=== PATIENT | female | born 1955 | race Caucasian/White ===

== ENCOUNTER → 2018-08-21 13:39 | Outpatient (CLI) | payer OTHER, SELFPAY ==
--- NOTE | 2018-08-21 13:44 | RAD_ITS ---
STUDY: X-RAY - RIGHT SHOULDER REASON FOR EXAM: Female, 63 years old. Injury right shoulder TECHNIQUE: 3 view(s) of the shoulder. COMPARISON: None. FINDINGS: Normal glenohumeral articulation. Normal acromioclavicular joint. Normal acromion. Normal humeral head and visualized proximal humerus. The soft tissue structures are unremarkable. Normal visualized pulmonary apex. RAD/Shoulder min 2 Views IMPRESSION: Normal x-ray examination of the shoulder. Electronically Signed: Matt Maddox MD at 21:38 EST , Service support ,
== END ==
PROVIDERS: Referring Provider Physician Assistant; Visit Provider Physician Assistant
DX: M25.511 Pain in right shoulder (principal)
CPT/HCPCS: 73030

== ENCOUNTER → 2018-09-12 15:51 | Outpatient (CLI) | payer OTHER, SELFPAY ==
--- NOTE | 2018-09-12 15:54 | MRI_ITS ---
STUDY: MRI RIGHT SHOULDER REASON FOR EXAM: Female, 63 years old. Pain. Limited range of motion. TECHNIQUE: Standardized fat and water weighted pulse sequences were obtained in all 3 orthogonal planes. COMPARISON: X-ray August 21, 2018. FINDINGS: There is tendinosis of the supraspinatus with high-grade bursal surface and intrasubstance distal tendon tear, series 5 image 10/04 and series 7 image 03/06. There is infraspinatus tendinosis with tendon thickening, but without a demonstrated tendon tear. There is subscapularis tendinosis with tendon thickening, but without a demonstrated tendon tear. Normal teres minor tendon. Normal supraspinatus muscle. Normal infraspinatus muscle. Normal subscapularis muscle. Normal teres minor muscle. Normal glenohumeral articulation. Normal humeral head and visualized proximal humerus. Normal biceps labral complex. Normal intracapsular long biceps tendon. Normal labrum. Normal capsulo- ligamentous complex. Normal rotator interval. There is moderate osteoarthritis of the acromioclavicular articulations. There is a Type II morphology (curved) acromion, with a neutral orientation. There is mild fluid distention of the subacromial bursa, consistent with mild subacromial-subdeltoid bursitis. Normal visualized coracohumeral and coracoacromial ligaments. Normal quadrilateral space. Normal axillary space. Normal deltoid muscle. Normal trapezius muscle. MRI/Upper Ext Joint Only(Routine) IMPRESSION: High-grade rotator cuff tear of the supraspinatus tendon. Electronically Signed: Andrez Tristan MD at 8:15 EST , Service support ,
--- OUTSIDE RECORDS SUMMARY | 2018-11-08 02:15 | XMS RPT_ITS ---
:1955 Author Organization OHIP Care Team Providers Name Role Phone LASHONDA SHEYBrynn Admitting Unavailable SCOTT YOUSSEF Attending Unavailable CAT YOUSSEFEESBrynn Referring Unavailable BREEZY LAWRENCE Consulting Unavailable CORI LOOMIS ([facility]) Referring Unavailable ANDREZ MEI Referring Unavailable Papo Reed Attending Unavailable Papo Reed Attending Unavailable Papo Reed Referring Unavailable VALENTINA ELIAS Primary Care Unavailable Papo Reed Attending Unavailable Papo Reed Referring Unavailable VALENTINA ELIAS Primary Care Unavailable Papo Reed Attending Unavailable DOCTOR, OUT OF TOWN Referring Unavailable NARGIS DONALD Attending Unavailable NARGIS DONALD Referring Unavailable CORI LOOMIS ([facility]) Attending Unavailable ANUJ DYER Attending Unavailable ANUJ DYER Referring Unavailable CORI LOOMIS ([facility]) Attending Unavailable CORI LOOMIS ([facility]) Referring Unavailable MALU DONALDE Josefina Attending Unavailable SHABANA NARGIS Josefina Referring Unavailable ANDREZ MEI Attending Unavailable TRISTA CHEATHAM Referring Unavailable JUANA HUNT ([place]) Referring Unavailable PROBLEMS PROBLEMS DATE TYPE CONDITION / CODE ATTENDING STATUS SOURCE 09/28/2018 Active Presence of coronary NA Active [facility] angioplasty implant [facility] Main and graft / [place] Z95.5(ICD-10) Repository 09/28/2018 Active Non-Hodgkin lymphoma, NA Active [place] unspecified, Clinic Other unspecified site / [place] C85.90(ICD-10) Repository 09/18/2018 Active Incomplete rotator NA Active [place] cuff tear or rupture Clinic Other of right shoulder, not [place] specified as traumatic Repository / M75.111(ICD-10) 02/07/2018 Active Essential (primary) NA Active [place] hypertension / Clinic Other I10(ICD-10) [place] Repository 02/07/2018 Active Gastro-esophageal NA Active [place] reflux disease without Clinic Other esophagitis / [place] K21.9(ICD-10) Repository 05/25/2016 Active Other specified NA Active [facility] polyneuropathies / Clinic Other G62.89(ICD-10) [place] Repository 09/28/2018 Active Encounter for other NA Active [place] preprocedural Clinic Other examination / [place] Z01.818(ICD-10) Repository 09/14/2018 Unknown M67.911 - Unspecified [place] glass Active [facility] disorder of [facility] and tendon, right Hospital shoulder / Repository M67.911(ICD-10) 09/14/2018 Unknown S46.209A - Unspecified Way[facility] Papo Active [facility] injury of muscle, [facility] fascia and tendon of Hospital other parts of biceps, Repository unspecified arm, initial encounter / S46.209A(ICD-10) 08/21/2018 Unknown M25.511 - Pain in [place] Active [facility] right shoulder / [facility] M25.511(ICD-10) Hospital Repository 02/28/2018 Active Encounter for NA Active [facility] screening mammogram Clinic Other for malignant neoplasm [place] of breast / Repository Z12.31(ICD-10) 01/27/2018 Active Chest pain, SINGAM, Active [place] unspecified / [facility] Clinic Other R07.9(ICD-10) [place] Repository PROCEDURES PROCEDURES No Procedure Records FoundRESULTS RESULTS NURSING PROG Observed: 10/01/2018 Status: COMPLETED Source: [place] 1:51 PM CLINIC OTHER CAMPUS REPOSITORY HNO ID: [id number] Author: Gege (Rn) ANANYA Smith Service: Nursing Author Type: Registered Nurse Type: Nursing Progress Note Filed: 10/01/2018 1:53 PM Note Text: PACC Nurse Progress Note History AND Physical: PACC Visit Date: 09/28/18 Original HANDP Date: 09/28/18 ED visit Date: N/A Outside HANDP Scanned Date: N/A Labs Within Last 6 Months: CBC: Date 09/28/18 cbc/diff- hgb 15.9/hct 48.5,similar to previous Imaging Within Last 12 Months: N/A Cardiac Testing: EKG in last 12 Months: Yes: Date: 01/27/18, Comment: NSR Last Menstrual Period: LMP Date: N/A Postmenopausal >1yr: Yes, S/P Hysterectomy: Yes BMI Percentile (PEDS): N/A Risk Assessment: N/A Anesthesia Review: N/A Narrative: Non Hodgkins Lymphoma- in remission CAD stent 2004- on ASA but pt currently stopped it on her own (I advised to to restart 81mg ASA) - denies CP Peripheral neuropathy- on rx's H/o splenectomy and chronic thrombocytosis Pre-op Considerations: N/A Chart Check: COMPLETED Gege Smith RN October 01, 2018 1:51 PM CBC AND DIFFERENTIAL Collected: 09/28/2018 Status: F Source: [place] 1:48 PM CLINIC MAIN CAMPUS REPOSITORY TYPE CODE TESTS RESULT OUT OF REFERENCE UNITS RANGE LAB WBC 3.70-11.00 k/uL WBC 9.72 LAB RBC 3.90-5.20 m/uL RBC High 5.35 LAB HGB 11.5-15.5 g/dL High Hemoglobin 15.9 LAB HCT 36.0-46.0 % High Hematocrit 48.5 LAB MCV 80.0-100.0 fL MCV 90.7 LAB MCH 26.0-34.0 pG MCH 29.7 LAB MCHC 30.5-36.0 g/dL MCHC 32.8 LAB RDWCV 11.5-15.0 % RDW-CV High 15.9 LAB PLTCT 150-400 k/uL Platelet Count 213 LAB MPV 9.0-12.7 fL MPV 11.8 LAB NEUT % Neut% 40 LAB LYMPH % Lymph% 43 LAB MONO % [place]% 12 LAB EOSIN % Eosin% 3 LAB BASO % Baso% 2 LAB ABNEUT 1.70-7.00 k/uL Abs Neut 3.89 LAB ABLYM 0.90-4.00 K/uL Abs Lym High 4.18 LAB ABMONO <0.87 k/uL Abs [place] High 1.17 LAB ABEOS <0.46 K/uL Abs Eosin 0.29 LAB ABBASO <0.11 k/uL Abs Baso High 0.19 LAB RBCMOR Red Cell Morph SEE COMMENT Result Comment: Normal LAB PLTEST Platelet Platelet Estimate estimate adequate Performed By: #### CBCDIF #### [facility] [address] [phone] HISTORY PHYSICAL Observed: 09/28/2018 Status: COMPLETED Source: [place] 1:02 PM CLINIC OTHER CAMPUS REPOSITORY HNO ID: [id number] Author: Juana Cheema) Armando Service: (none) Author Type: Physician Fbi Investigator Type: HANDP Filed: 09/28/2018 1:53 PM Note Text: HISTORY AND PHYSICAL EXAMINATION SERVICE DATE: 09/28/2018 SERVICE TIME: 1:02 PM PRIMARY CARE PHYSICIAN: Nargis Donald MD REASON FOR VISIT: Cristiane Santiago is a 63 year old female who is scheduled for right shoulder clavicle osteotomy with arthroscopy at the request of Dr. Andrez Mei for consultation. My final recommendation will be communicated back to the requesting physician by way of shared medical record or letter. The patient has the following: ACTIVE PROBLEM LIST Lymphoma (Hcc) Marginal Zone Lymphoma (Hcc) Cellulitis of Face Anxiety Peripheral Neuropathy Chest Pain Gastroesophageal Reflux Disease Essential Hypertension Impingement Syndrome of Right Shoulder Incomplete Tear of Right Rotator Cuff Arthritis of Right Shoulder Region H/O Placement of Stent in Anterior Descending Branch of Left Coronary Artery Subjective CHIEF COMPLAINT: right shoulder pain HPI: right shoulder pain since and injury in March when she fell. Since then the pain is worse with trying to lift something and raise the arm. The pain is throbbing at rest as well. Prior treatment has been aleve. No PT or injections. PAST MEDICAL HISTORY Diagnosis Date - Anxiety - CAD (coronary artery disease) - Cellulitis of face 08/24/2015 - HTN (hypertension) - Hyperlipidemia pt refuses meds due to myalgias - Marginal zone lymphoma (HCC) 05/10/[address] 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 if pt has ovaries FAMILY HISTORY Problem Relation Age of Onset - Cancer Father ? type - Diabetes Mother - Hypertension Mother - Breast Cancer Maternal Aunt and ovarian cancer - other (leukemia) Maternal Aunt 2 cousins SOCIAL HISTORY: Social History Marital status: Spouse name: Years of education: Number of children: Social History Main Topics Smoking status: Former Smoker Packs/day: 1.50 Years: 40.00 Types: Cigarettes Quit date: 09/06/2018 Smokeless tobacco: Never Used Alcohol use: No Drug use: No Prior to Admission medications as of 09/28/18 1319 Medication Sig Last Dose Taking ALPRAZolam (XANAX) 1 mg tablet Take 1 tablet by mouth three times daily as needed for up to 90 days. Yes baclofen (LIORESAL) 10 mg tablet TAKE 1 TABLET BY MOUTH THREE TIMES DAILY Yes gabapentin (NEURONTIN) 800 mg tablet Take 1 tablet by mouth three times daily. Yes metoprolol succinate ER (TOPROL XL) 50 mg 24 hr tablet Take 5 tablets by mouth once daily. Patient taking differently: Take 50 mg by mouth three times daily. tid to qid throughout the day Yes Omeprazole 40 mg capsule Take 1 capsule by mouth as needed. Yes ramipril (ALTACE) 5 mg capsule Take 1 capsule by mouth four times daily. Yes No medication comments found. ALLERGIES Allergen Reactions - Penicillins Rash, Itching - Codeine Itching - Hydrochlorothiazide Intolerance low sodium - Morphine Unknown - Rituximab Unknown REVIEW OF SYSTEMS: PAIN ASSESSMENT: Pain Pain Score: 6/10 Pain Location: Shoulder-Right Description: Aching Frequency: Continuous Intervention: Medication General: No weight loss, malaise or fevers. Neuro: Postive for Peripheral neuropathy hands and feet since chemo, 2 syncopal episodes with dizziness- didnt go to ER, Negative for TIA's Headaches Seizures Stroke-residual deficit Respiratory: No history of current cough or dyspnea, or pneumonia in the past 6 weeks. No history of respiratory/pulmonary symptoms or problems., quit smoking 08/2018 Cardiovascular: Positive for: CAD; Stents: 2003 1 stent in LAD, Hypertension, Negative for Recent DE, Arrhythmia, Chest Pain, Valvular Heart Disease, DVT/PE Pt has stopped her ASA EKG in 01/2018 [facility] GI: Positive for GERD, h/o splenectomy , Negative for PUD, Hepatitis, Pancreatitis, IBS : No history of dysuria, frequency or incontinence,, stones or chronic kidney disease CHICKEN SEXER: Negative for abnormal vaginal bleeding, abnormal vaginal discharge. : N/A, No LMP recorded. Patient has had a hysterectomy. Endocrine: No history of diabetes. Has not taken steroids within the past 30 days. No history of endocrinological symptoms or problems. Hematology: chronic leukocytosis since splenectomy, No anemia Oncology: Non Hodgkins lymphoma- in remission, sees Dr Palmer Psych: Anxiety Musculoskeletal: See HPI Skin: Negative for lesions, rash and itching. Objective PHYSICAL EXAM: VITALS: BP 128/64 Pulse 60 Temp (Src) 98.6 (Tympanic) Resp 16 Ht 5' 3 (1.60m) Wt 142 lb (64.4kg) SpO2 96% BMI 25.16 kg/(m2). General: Alert and oriented, No acute distress, Healthy appearance Skin: Normal color, no rash, no lesions. HEENT: EOM, pupils equal, round and reactive. Cardiovascular: Normal S1 AND S2, no rubs, murmurs or gallops. No JVD. Pulse regular. Lungs: Normal breath sounds, no wheezes or crackles. Abdomen: Soft, non-tender, no rigidity. Extremities: No deformity, no edema or tenderness, no joint swelling or clubbing. Neurological: Normal cognition and motor skills. Pulses: Carotid and radial pulses normal +2. Diagnostic tests reviewed for today's visit: Lab Value Units Date High Low HB No results within date range. HCT No results within date range. WBC No results within date range. PLT No results within date range. NA 141 MEQ/L 04/06/2018 145 136 K 4.9 MEQ/L 04/06/2018 5.1 3.5 GLUC 82 MG/DL 04/06/2018 106 74 BUN 6 mg/dL 04/06/2018 25 7 CREAT 0.77 mg/dL 04/06/2018 1.20 0.70 PTSEC No results within date range. INR No results within date range. APTT No results within date range. ALT No results within date range. AST No results within date range. TBILI No results within date range. TSH No results within date range. Lab Value Units Date High Low HCGQT No results within date range. UHCG No results within date range. HCG, BODY* No results within date range. Lab Value Units Date High Low ABORHD No results within date range. ABSCREEN No results within date range. Hemoglobin A1C (%) Date Value 01/27/2018 6.0 Most recent labs Assessment ASSESSMENT HTN - Well controlled Non Hodgkins Lymphoma- in remission CAD stent 2004- on ASA but pt currently stopped it on her own (I advised to to restart 81mg ASA) - denies CP Peripheral neuropathy- on rx's GERD- on rx H/o splenectomy and chronic thrombocytosis METS: Do heavy work around the house, such as scrubbing floors, lifting or moving heavy furniture (8.00 METs) ASA Class: 3 ANESTHESIA FINDINGS: Intubation History: No history of difficult intubation Significant Anesthesia Considerations: None Airway Exam: General: Normal appearance Mallampati Score is CLASS III ULBT: Class I - Lower incisors can bite the upper lip above the obi line Neck: Normal appearance and function, Distance from hyoid to mentum during neck extension is at least 3 finger breaths Mouth: Normal tongue size Dentition: Intact and Bridge Airway History: No abnormal airway history STOP BANG Score: Criteria: Hypertension Age over 50 (63 year old) Score = 2 PLAN This patient is optimally prepared for surgery pending LABS. CONSULTS: Patient does not require consults for optimization at this time. The Following Tests/Procedures Have Been Initiated: Orders Placed This Encounter CBC + DIFF Planned Anesthetic: Per anesthesia choice Instructions Given to Patient: Patient given verbal and written preop instructions and voices comprehension and compliance. SIGNATURE: Juana Hunt PA-C PATIENT NAME: Cristiane Santiago DATE: September 28, 2018 TIME: 1:02 PM PAGER/CONTACT #: [email or web address] VISIT Observed: 09/17/2018 Status: F Source: [facility] REPORT 4:21 PM [facility] REPOSITORY [facility] Orthopaedics AND Sports Medicine [address] [place] [id number] OFFICE VISIT Date of Service: 09/14/18 MR#: [id number] Acct: [id number] Name: CRISTIANE SANTIAGO Rep #: [id number] : 1955 Provider: ASIF Reed Age/Sex: 63/F [place] [facility] [place] Status: Signed Intake Intake Visit Reasons: RIGHT SHOULDER Is patient in pain?: Yes Allergies codeine Allergy (Verified 08/21/18 13:31) unknown morphine Allergy (Verified 08/21/18 13:31) Unknown Penicillins Allergy (Verified 08/21/18 13:31) unknown PFSH Medical History Hypertension (Chronic) Social History Smoking Status: Current every day smoker tobacco type: cigarettes HPI RIGHT SHOULDER: Details: CRISTIANE SANTIAGO is a 63 year old F here today for MRI f/u of the right shoulder. She complains of pain during any motions, she finds some comfort when seated but pain increases again at night when trying to sleep. She also states she has tenderness to touch the scapula and cervical spine. There is also tricep radiating pain at the end of the day as well. Denies numbness, tingling or other associated symptoms. ROS Musc Reports as per HPI, Reports limited joint movement, Reports stiffness, Reports joint pain, Reports muscle weakness Ortho Exam Right Shoulder Skin/Wound: No ecchymosis Contralateral Normal: Yes Testing: Positive Hawkin's, Neer's, Speed's, TTP Biceps and TTP AC Joint; negative AROM-Forward Elevation 0-180 (90), AROM-External Rotation at side 0-60 (20), PROM-Forward Elevation 0-180 or PROM-External Rotation at side 0-60 Internal Rotation: Hip SHOULDER: She continue to have evident decrease strength and motion of the right shoulder mostly abduction and forward flexion as well as internal rotation. There is evident weakness with rotator cuff muscles in all directions still. AC joint which is also tender on palpation with some bony formation. There is still biceps tendon and the coracoid process tenderness indicating biceps involvement. Assessment AND Plan Problems 1. Tear of right supraspinatus tendon, subsequent encounter S46.396F Plan At this time we discussed the patient's MRI findings which did show a high-grade full-thickness tear of the supraspinatus tendon. This point does correspond with patient's signs and symptoms which include decreased range of motion and strength of the right shoulder. We discussed the anatomy and physiology of the shoulder and rotator cuff as well as the pathophysiology of her injury. At this time they really feel that she would like to proceed with surgical fixation of the rotator cuff. They however want to make sure that this is done before the end of the year. I explained that at this time our surgeon will be out on maternity leave and at this point do not have any open surgical slots prior to when she is going to stop surgery. It is possible that she will open of this loss but cannot guarantee this and explained that to patient and her . I will check with our surgeon about this surgery at the same time advised him that I would check with their insurance company and see about getting in with 1 of the surgeons across [facility] who can also review her MRI to see if anybody would be able to do her surgery prior to be in the year which is what they want. They are to call the office on Monday after which time I will talk with surgeon but again I did recommend they start to try have something else in the works as a really want to somebody in the year. Coding Level of Care Code Off vis,est,level 2 Diagnoses Tear of right supraspinatus tendon, subsequent encounter S46.811D Encounter type: subsequent encounter 09/17/18 1621 <Electronically signed by Papo GOLD> Date Papo GOLD Cosigner Signature: Date (if applicable) CC: UPPER EXT JOINT Observed: 09/12/2018 Status: F Source: [place] ONLY(ROUTINE) 3:54 PM [facility] REPOSITORY [facility] Imaging Services [address] [place] [address] Upper Ext Joint Only(Routine) MR#: [id number] Acct: [id number] Name: CRISTIANE SANTIAGO David Rep #: [id number] : 1955 F 63 From: Andrez Tristan MD PCP: OUT OF TOWN DOCTOR Status: REG CLI Study: Upper Ext Joint Only(Routine) Date of Exam: 09/12/18 Exam# [id number] Ordering Dr: Papo Reed STUDY: MRI RIGHT SHOULDER REASON FOR EXAM: Female, 63 years old. Pain. Limited range of motion. TECHNIQUE: Standardized fat and water weighted pulse sequences were obtained in all 3 orthogonal planes. COMPARISON: X-ray August 21, 2018. FINDINGS: There is tendinosis of the supraspinatus with high-grade bursal surface and intrasubstance distal tendon tear, series 5 image 10/04 and series 7 image 03/06. There is infraspinatus tendinosis with tendon thickening, but without a demonstrated tendon tear. There is subscapularis tendinosis with tendon thickening, but without a demonstrated tendon tear. Normal teres minor tendon. Normal supraspinatus muscle. Normal infraspinatus muscle. Normal subscapularis muscle. Normal teres minor muscle. Normal glenohumeral articulation. Normal humeral head and visualized proximal humerus. Normal biceps labral complex. Normal intracapsular long biceps tendon. Normal labrum. Normal capsulo- ligamentous complex. Normal rotator interval. There is moderate osteoarthritis of the acromioclavicular articulations. There is a Type II morphology (curved) acromion, with a neutral orientation. There is mild fluid distention of the subacromial bursa, consistent with mild subacromial-subdeltoid bursitis. Normal visualized coracohumeral and coracoacromial ligaments. Normal quadrilateral space. Normal axillary space. Normal deltoid muscle. Normal trapezius muscle. MRI/Upper Ext Joint Only(Routine) IMPRESSION: High-grade rotator cuff tear of the supraspinatus tendon. Electronically Signed: Anderz Tristan MD at 8:15 EST , Service support , CC: ASIF Reed; OUT OF TOWN DOCTOR Content Coordinator: Signed MR-UPPER EXT JOINT Observed: 09/12/2018 Status: F Source: [place] ONLY(ROUTINE) IMPORT 12:00 AM [facility] [place] REPOSITORY Images were obtained outside of [facility] [id number] MR OUTSIDE CD DICOM Observed: 09/12/2018 Status: F Source: [place] IMPORT -NBNR 12:00 AM [facility] [place] REPOSITORY Images were obtained outside of [facility] [id number] ORTHOPEDIC VISIT Observed: 08/21/2018 Status: F Source: [place] REPORT 4:18 PM [facility] REPOSITORY [facility] Orthopaedics AND Sports Medicine [address] [facility] [address] [place] [address] OFFICE VISIT Date of Service: 08/21/18 MR#: [id number] Acct: [id number] Name: CRISTIANE SANTIAGO Rep #: [id number] : 1955 Provider: ASIF Reed Age/Sex: 63/F Location: [facility] [place] Status: Signed Intake Vital Signs08/21/18 Height 5 ft 3 in 08/21/18 Weight: 147 lb 08/21/18 Body Mass Index (BMI) 26.0 Intake Visit Reasons: RIGHT SHOULDER Is patient in pain?: Yes Pain scale (1-10): 7 Allergies codeine Allergy (Verified 08/21/18 13:31) unknown morphine Allergy (Verified 08/21/18 13:31) Unknown Penicillins Allergy (Verified 08/21/18 13:31) unknown PFSH Medical History Hypertension (Chronic) Social History Smoking Status: Current every day smoker tobacco type: cigarettes HPI RIGHT SHOULDER: Details: CRISTIANE SANTIAGO is a 63 year old F here today for right shoulder pain. Patient notes that she has had right shoulder pain since April. She states that she stepped on a piece of wood, and the board flipped and she landed on her right shoulder. Patient complains of pain over her anterior shoulder. She states that she has popping. Patient states that she had shingles a year ago, and her neck is still numb from her shingles. Patient has increased pain with all activities. She struggles to push herself up in the morning which is painful. Patient denies any injections or physical therapy. She denies any xrays or MRI. Denies numbness, tingling or other associated symptoms. ROS Const Reports system reviewed and no additional complaints, except as docu Eyes Reports system reviewed and no additional complaints, except as docu ENT Reports system reviewed and no additional complaints, except as docu Card Reports system reviewed and no additional complaints, except as docu Resp Reports system reviewed and no additional complaints, except as docu GI Reports system reviewed and no additional complaints, except as docu Reports system reviewed and no additional complaints, except as docu Musc Reports joint pain Skin/Breast Reports system reviewed and no additional complaints, except as docu Neuro Yes system reviewed and no additional complaints, except as docu Psych Reports system reviewed and no additional complaints, except as docu Endo Reports system reviewed and no additional complaints, except as docu Ortho Exam Right Shoulder Skin/Wound: No ecchymosis Contralateral Normal: Yes Testing: Positive Hawkin's, Neer's, Speed's, TTP Biceps and TTP AC Joint; negative AROM-Forward Elevation 0-180 (90), AROM-External Rotation at side 0-60 (20), PROM-Forward Elevation 0-180 or PROM-External Rotation at side 0-60 Internal Rotation: Hip SHOULDER: This time patient has evident decrease strength and motion of the right shoulder. Most notably decreased with abduction and forward flexion and internal rotation. She has evident weakness with rotator cuff muscles in all directions as well. There is a small bony protrusion of the AC joint which is also tender on palpation. She does have some anterior tenderness over the biceps tendon and the coracoid process. There does appear to be some biceps involvement. Assessment AND Plan Problems 1. Injury of right shoulder, initial encounter S49.91XA 2. Disorder of right rotator cuff M67.911 3. Injury of tendon of biceps S46.A Plan Obtained Xrays of patient's right shoulder. Personally reviewed Xrays. There is no obvious fracture, dislocation, or lucency noted at the same time there is evident AC joint arthritis as well as having a type II acromion. See chart for further details. Today in office patient has evident rotator cuff involvement showing weakness as well as decreased range of motion. She has evident impingement signs. She also has evident biceps involvement. Patient had an initial injury back in April and has continued with his decreased range of motion and strength. This exam does point to a rotator cuff tear. We discussed options at this time which include doing nothing, some home exercises, anti-inflammatories, injections, or further diagnostic imaging. After discussion patient and her state that she would want to have this fixed if there is something to be fixed and would like to proceed with an MRI of the right shoulder before she does any type of injections or therapy. I explained the risks and benefits of all these treatment options with them including surgical intervention which they understand verbally. Again they would like to proceed with MRI at this time. They will follow-up in the office to go over her MRI and discuss the next step in her treatment. She continues to ice and take anti-inflammatories as needed for pain. Notify sooner of any injuries, concerns, or new problems. Orders Orders: Plan Detail Follow Up 3 Weeks Coding Level of Care Code Off vis,new,level 3 Diagnoses Injury of right shoulder, initial encounter S49.91XA Encounter type: initial encounter Disorder of right rotator cuff M67.911 Injury of tendon of biceps S46.209A 08/21/18 1618 <Electronically signed by Papo GOLD> Date Papo GOLD Cosigner Signature: Date (if applicable) CC: SHOULDER MIN 2 VIEWS Observed: 08/21/2018 Status: F Source: [place] 1:44 PM [facility] REPOSITORY [facility] Imaging Services [address] [place] [address] Shoulder min 2 Views MR#: [id number] Acct: [id number] Name: CRISTIANE SANTIAGO Rep #: [id number] : 1955 F 63 From: Matt Maddox MD PCP: OUT OF TOWN DOCTOR Status: REG CLI Study: Shoulder min 2 Views Date of Exam: 08/21/18 Exam# [id number] Ordering Dr: Papo Reed STUDY: X-RAY - RIGHT SHOULDER REASON FOR EXAM: Female, 63 years old. Injury right shoulder TECHNIQUE: 3 view(s) of the shoulder. COMPARISON: None. FINDINGS: Normal glenohumeral articulation. Normal acromioclavicular joint. Normal acromion. Normal humeral head and visualized proximal humerus. The soft tissue structures are unremarkable. Normal visualized pulmonary apex. RAD/Shoulder min 2 Views IMPRESSION: Normal x-ray examination of the shoulder. Electronically Signed: Matt Maddox MD at 21:38 EST , Service support , CC: ASIF Reed; OUT OF [facility] DOCTOR Content Coordinator: Signed CR-SHOULDER MIN 2 VIEWS Observed: 08/21/2018 Status: F Source: [place] 12:00 AM [facility] REPOSITORY Images were obtained outside of [facility] [id number] CR-SHOULDER MIN 2 VIEWS Observed: 08/21/2018 Status: F Source: [place] 12:00 AM [facility] REPOSITORY Images were obtained outside of [facility] [id number] PROGRESS Observed: 04/23/2018 Status: COMPLETED Source: [place] 2:00 PM [facility] REPOSITORY O ID: [id number] Author: Nargis Donald Service: (none) Author Type: Physician Type: Progress Notes Filed: 04/23/2018 5:46 PM Note Text: Cristiane Santiago is a 63 year old female who presents today with concern or complaint of Patient presents with: Follow Up routine f/u last visit w/ Cori ~ 6 weeks ago and 10 weeks ago review elevated BPs, had low sodium on hctz so it was d/c'd didn't have recommended stress test after [facility] ED visit denies cp review of last A/P per MATERIAL DAMAGE ADJUSTER suboptimal control Patient unwilling at this time to try a different antihypertensive such as amlodipine Patient requesting that we attempt to increase one of HER- 2 current medications and hopes that she can tolerate this Patient currently taking Altace 5 mg and metoprolol 25 mg (1/2 tab) 4 times daily Patient to increase metoprolol to 50 mg 4 times a day - Encouraged dietary sodium restriction/DASH diet - Recommend home blood pressure monitoring, to bring results in on next visit - Recheck in 6 weeks as scheduled with PCP, sooner should new symptoms or problems arise. - Patient strongly encouraged to complete stress test as previously ordered says that she gets really nervous when she is coming in has increased toprol to 250 mg a day and readings have been better at home it was incerased by Cori to 200 mg a day but pharmacist said she could take a 5th one if needed up to 400 mg / day DTAP,TDAP,TD(1 - Tdap) due on 1974 ZOSTER VACCINE (SHINGRIX)(1 of 2) due on 2005 increased her gabapentin / neurontin to 4 times a day for neuropathy on her own - willing to try 800 mg tid in need of referral for pain management, history of peripheral neuropathy in hands and feet after chemotherapy for lymphoma in 2012, also c/o ongoing nerve pain in right upper back after shingles which was in 08/2017 - can hardly stand putting clothes on neurontin hasn't helped c/o sinus infection sx request for doxy get's it 1-2 times a year apain at left upper molars like she usually does left side of face was given nasal spray and an antbx in the past which worked well has had it several times over the years PMH reviewed MEDS reviewed ALLERGIES: Penicillins; Codeine; Hydrochlorothiazide; Morphine; Rituximab PHYSICAL EXAMINATION: BP 198/88 Pulse 64 Temp 36.8 ?C (98.2 ?F) (Oral) Resp 18 Wt 67.3 kg (148 lb 4.8 oz) SpO2 96% BMI 26.27 kg/m? General appearance: alert, cooperative, in no acute distress Head: Normaocephalic Eyes: conjunctiva/corneas normal, EOMI Ears: Inspection of External ears normal R TM - clear with good landmarks, L TM - clear with good landmarks Nose: clear, ttp over max sinus Oropharynx: moist Neck: supple, no adenopathy and ttp right upper back Heart: regular rate and rhythm, without murmur Lungs: clear to auscultation, without rales or wheeze, good air exchange Lower Extremities: no edema, normal DP/PT pulses ASSESSMENT/PLAN: 1. Uncontrolled hypertension - ICD9: 401.9, ICD10: I10 (primary diagnosis) - aggrav by stress / white coat hypertension, improving at home w/ increase in metoprolol recommmend continue w/ metoprolol 250 mg once daily (pt prefers to spread out the dose on her own but advised ok to take all at once or split in 2 doses 3 in am and 2 later rather than 1 at a time) - Encouraged dietary sodium restriction/DASH diet - Recommended regular aerobic exercise. - Recommend home blood pressure monitoring, to bring results in on next visit - Follow up in 1 month for BP recheck. - Goal of BP <140/90 - Encourage smoking cessation. - METOPROLOL SUCCINATE ER 50 MG TABLET,EXTENDED RELEASE 24 HR 2. Anxiety - ICD9: 300.00, ICD10: F41.9 on chronic benzodiazepine, refill - ALPRAZOLAM 1 MG TABLET 3. Gastroesophageal reflux disease, esophagitis presence not specified - ICD9: 530.81, ICD10: K21.9 refill / controlled - OMEPRAZOLE 40 MG CAPSULE,DELAYED RELEASE 4. Other polyneuropathy - ICD9: 357.89, ICD10: G62.89 5. Postherpetic neuralgia - ICD9: 053.19, ICD10: B02.29 increase neurontin to 800 mg tid from 600 mg tid consult to pain management, - GABAPENTIN 800 MG TABLET - CONSULT TO PAIN MGT ANESTHESIA 6. Acute maxillary sinusitis, recurrence not specified - ICD9: 461.0, ICD10: J01.00 - Will begin treatment with as per antibiotic as written, see orders - DOXYCYCLINE MONOHYDRATE 100 MG CAPSULE Nargis Donald MD CNOV Observed: 04/23/2018 Status: COMPLETED Source: [place] 2:00 PM [facility] REPOSITORY [facility] CRISTIANE SANTIAGO ([id number]) 1955 F Date Time Provider Department 04/23/18 2:00 PM NARGIS DONALD During your visit today, we recorded the following information about you: Temperature Pulse Respiration Blood pressure 98.2 degrees 64/minute 18/minute 198/88 Weight 67.3 kg [facility] 04/23/2018 2:07 PM Signed Patient presents with: Follow Up [facility] 04/23/2018 5:46 PM Signed DTAP,TDAP,TD(1 - Tdap) due on 1974 ZOSTER VACCINE (SHINGRIX)(1 of 2) due on 2005 [facility] 04/23/2018 1:51 PM Signed [facility] - LAB TEST INFORMATION HOURS: 7 am to 6 pm Monday ? Monday, 7 am -12 pm on Monday. The lab is located in [facility] on the first floor. There is a registration window at the lab, available 7 am to 3 pm Monday ? Monday. If registration is unavailable at the lab, you may register at the patient registration office near [facility] [place]. ROUTINE ORDERS 60 days after they are entered. If you arrive for your lab testing after the orders have , you may be required to wait in the lab while they are reinstated. FUTURE ORDERS are lab tests to be completed on or after an ?expected? future date. These orders 60 days after the expected date. STANDING ORDERS are recurring orders with an expiration date. The interval will indicate how often the test should be completed. FASTING means nothing to eat or drink (except water) 10-12 hours before your blood is drawn. CT / MRI / IVP If you have lab tests ordered for one of these radiology exams, please complete the blood work at least one day prior to the scheduled exam. PRESCRIPTION REFILL REQUESTS Request prescription refills through your [employer] account or contact your Pharmacy. Nargis Donald MD 04/23/2018 5:46 PM Signed Cristiane Hernandez Kim is a 63 year old female who presents today with concern or complaint of Patient presents with: Follow Up routine f/u last visit w/ Cori ~ 6 weeks ago and 10 weeks ago review elevated BPs, had low sodium on hctz so it was d/c'd didn't have recommended stress test after [facility] ED visit denies cp review of last A/P per MATERIAL DAMAGE ADJUSTER suboptimal control Patient unwilling at this time to try a different antihypertensive such as amlodipine Patient requesting that we attempt to increase one of HER- 2 current medications and hopes that she can tolerate this Patient currently taking Altace 5 mg and metoprolol 25 mg (1/2 tab) 4 times daily Patient to increase metoprolol to 50 mg 4 times a day - Encouraged dietary sodium restriction/DASH diet - Recommend home blood pressure monitoring, to bring results in on next visit - Recheck in 6 weeks as scheduled with PCP, sooner should new symptoms or problems arise. - Patient strongly encouraged to complete stress test as previously ordered says that she gets really nervous when she is coming in has increased toprol to 250 mg a day and readings have been better at home it was incerased by Cori to 200 mg a day but pharmacist said she could take a 5th one if needed up to 400 mg / day DTAP,TDAP,TD(1 - Tdap) due on 1974 ZOSTER VACCINE (SHINGRIX)(1 of 2) due on 2005 increased her gabapentin / neurontin to 4 times a day for neuropathy on her own - willing to try 800 mg tid in need of referral for pain management, history of peripheral neuropathy in hands and feet after chemotherapy for lymphoma in 2012, also c/o ongoing nerve pain in right upper back after shingles which was in 08/2017 - can hardly stand putting clothes on neurontin hasn't helped c/o sinus infection sx request for doxy get's it 1-2 times a year apain at left upper molars like she usually does left side of face was given nasal spray and an antbx in the past which worked well has had it several times over the years PMH reviewed MEDS reviewed ALLERGIES: Penicillins; Codeine; Hydrochlorothiazide; Morphine; Rituximab PHYSICAL EXAMINATION: BP 198/88 Pulse 64 Temp 36.8 ?C (98.2 ?F) (Oral) Resp 18 Wt 67.3 kg (148 lb 4.8 oz) SpO2 96% BMI 26.27 kg/m? General appearance: alert, cooperative, in no acute distress Head: Normaocephalic Eyes: conjunctiva/corneas normal, EOMI Ears: Inspection of External ears normal R TM - clear with good landmarks, L TM - clear with good landmarks Nose: clear, ttp over max sinus Oropharynx: moist Neck: supple, no adenopathy and ttp right upper back Heart: regular rate and rhythm, without murmur Lungs: clear to auscultation, without rales or wheeze, good air exchange Lower Extremities: no edema, normal DP/PT pulses ASSESSMENT/PLAN: 1. Uncontrolled hypertension - ICD9: 401.9, ICD10: I10 (primary diagnosis) - aggrav by stress / white coat hypertension, improving at home w/ increase in metoprolol recommmend continue w/ metoprolol 250 mg once daily (pt prefers to spread out the dose on her own but advised ok to take all at once or split in 2 doses 3 in am and 2 later rather than 1 at a time) - Encouraged dietary sodium restriction/DASH diet - Recommended regular aerobic exercise. - Recommend home blood pressure monitoring, to bring results in on next visit - Follow up in 1 month for BP recheck. - Goal of BP <140/90 - Encourage smoking cessation. - METOPROLOL SUCCINATE ER 50 MG TABLET,EXTENDED RELEASE 24 HR 2. Anxiety - ICD9: 300.00, ICD10: F41.9 on chronic benzodiazepine, refill - ALPRAZOLAM 1 MG TABLET 3. Gastroesophageal reflux disease, esophagitis presence not specified - ICD9: 530.81, ICD10: K21.9 refill / controlled - OMEPRAZOLE 40 MG CAPSULE,DELAYED RELEASE 4. Other polyneuropathy - ICD9: 357.89, ICD10: G62.89 5. Postherpetic neuralgia - ICD9: 053.19, ICD10: B02.29 increase neurontin to 800 mg tid from 600 mg tid consult to pain management, - GABAPENTIN 800 MG TABLET - CONSULT TO PAIN MGT ANESTHESIA 6. Acute maxillary sinusitis, recurrence not specified - ICD9: 461.0, ICD10: J01.00 - Will begin treatment with as per antibiotic as written, see orders - DOXYCYCLINE MONOHYDRATE 100 MG CAPSULE Nargis Donald MD Referring Provider: NARGIS DONALD [[id number]] Allergies As of Date: 04/23/2018 Noted Allergy Reaction PENICILLINS 11/12/2010 2 - Rash 9 - Itching CODEINE 11/12/2010 9 - Itching HYDROCHLOROTHIAZIDE 04/23/2018 5 - Intolerance Comments: low sodium MORPHINE 11/12/2010 16 - Unknown RITUXIMAB 11/12/2010 16 - Unknown Date Reviewed: 04/23/2018 Reviewed by: Stef Carlson - Fully Assessed Reason for Visit: Follow Up [171] Primary Visit Diagnosis:Uncontrolled hypertension [I10] Other Visit Diagnoses:Anxiety [F41.9] Gastroesophageal reflux disease, esophagitis presence not specified [K21.9] Other polyneuropathy [G62.89] Postherpetic neuralgia [B02.29] Acute maxillary sinusitis, recurrence not specified [J01.00] Order(s):metoprolol succinate ER (TOPROL XL) 50 mg 24 hr tabletTake 5 tablets by mouth once daily.Disp: 450 tabletRfl: 3 ALPRAZolam (XANAX) 1 mg tabletTake 1 tablet by mouth three times daily as needed for up to 90 days.Disp: 90 tabletRfl: 2 Omeprazole 40 mg capsuleTake 1 capsule by mouth as needed.Disp: 90 capsuleRfl: 3 gabapentin (NEURONTIN) 800 mg tabletTake 1 tablet by mouth three times daily.Disp: 270 tabletRfl: 1 doxycycline monohydrate (MONODOX) 100 mg capsuleTake 1 capsule by mouth twice daily for 10 days.Disp: 20 capsuleRfl: 0 CONSULT TO PAIN MGT ANESTHESIA [20000121] Order #: [id number]: 1 varenicline (CHANTIX) 0.5 mg (11)- 1 mg (42) tabletTake 1 tablet (0.5 mg) by mouth once daily for 3 days, then 1 tablet (0.5 mg) twice daily for 4 days, then one tablet (1 mg) twice daily.Disp: 53 tabletRfl: 0 Prescriptions as of 04/23/2018 Sig: METOPROLOL SUCCINATE ER 50 MG* Take 5 tablets by mouth once * ALPRAZOLAM 1 MG TABLET Take 1 tablet by mouth three * OMEPRAZOLE 40 MG CAPSULE,FATEMEH* Take 1 capsule by mouth as ne* BACLOFEN 10 MG TABLET Take 1 tablet by mouth three * RAMIPRIL 5 MG CAPSULE Take 1 capsule by mouth four * NAPROXEN 500 MG TABLET Take 1 tablet by mouth twice * ASPIRIN 325 MG TABLET Takes half tab daily GABAPENTIN 800 MG TABLET Take 1 tablet by mouth three * DOXYCYCLINE MONOHYDRATE 100 M* Take 1 capsule by mouth twice* VARENICLINE 0.5 MG (11)-1 MG * Take 1 tablet (0.5 mg) by kaitlin* Problem List As Of Date 04/23/2018 Noted Resolved Lymphoma [C85.90] INVALID FOR* Marginal zone lymphoma [C85.80] INVALID FOR* Cellulitis of face [L03.211] INVALID FOR* Anxiety [F41.9] Peripheral neuropathy (HCC) [G62.9] More... Chest pain [R07.9] INVALID FOR* Gastroesophageal reflux disease [K21.9] INVALID FOR* Essential hypertension [I10] INVALID FOR* Other instructions from your clinician: [facility] - LAB TEST INFORMATION HOURS: 7 am to 6 pm Monday ? Monday, 7 am -12 pm on Monday. The lab is located in [facility] on the first floor. There is a registration window at the lab, available 7 am to 3 pm Monday ? Monday. If registration is unavailable at the lab, you may register at the patient registration office near [facility] [place]. ROUTINE ORDERS 60 days after they are entered. If you arrive for your lab testing after the orders have , you may be required to wait in the lab while they are reinstated. FUTURE ORDERS are lab tests to be completed on or after an ?expected? future date. These orders 60 days after the expected date. STANDING ORDERS are recurring orders with an expiration date. The interval will indicate how often the test should be completed. FASTING means nothing to eat or drink (except water) 10- 12 hours before your blood is drawn. CT / MRI / IVP If you have lab tests ordered for one of these radiology exams, please complete the blood work at least one day prior to the scheduled exam. PRESCRIPTION REFILL REQUESTS Request prescription refills through your [employer] account or contact your Pharmacy. Visit Notes: >> Stef Carlson MonApr 23, 2018 1:51 PM Status: Signed Patient presents with: Follow Up Prescriptions ordered this encounter Disp Refills Start End METOPROLOL SUCCINATE ER 50 MG TABLET* 450 * 3 04/23/2018 Route: ORAL Sig: Take 5 tablets by mouth once daily. ALPRAZOLAM 1 MG TABLET 90 t* 2 04/23/2018 07/22/2018 Class: Call Rx Route: ORAL Sig: Take 1 tablet by mouth three times daily as needed for up to 90 days. OMEPRAZOLE 40 MG CAPSULE,DELAYED REL* 90 c* 3 04/23/2018 Route: ORAL Sig: Take 1 capsule by mouth as needed. GABAPENTIN 800 MG TABLET 270 * 1 04/23/2018 04/23/2019 Route: ORAL Sig: Take 1 tablet by mouth three times daily. DOXYCYCLINE MONOHYDRATE 100 MG CAPSU* 20 c* 0 04/23/2018 05/03/2018 Route: ORAL Sig: Take 1 capsule by mouth twice daily for 10 days. VARENICLINE 0.5 MG (11)-1 MG (42) TA* 53 t* 0 04/23/2018 06/22/2018 Sig: Take 1 tablet (0.5 mg) by mouth once daily for 3 days, then 1 tablet (0.5 mg) twice daily for 4 days, then one tablet (1 mg) twice daily. Medications Discontinued During This Encounter metoprolol succinate ER (TOPROL XL) * 360 * 1 03/08/2018 04/23/2018 Route: ORAL Sig: Take 2 tablets by mouth twice daily. Disc: Reason for discontinue is not on file. ALPRAZolam (XANAX) 1 mg tablet 90 t* 0 03/27/2018 04/23/2018 Class: Call Rx Sig: TAKE 1 TABLET BY MOUTH THREE TIMES DAILY NEEDED Disc: Reason for discontinue is not on file. Omeprazole 40 mg capsule 90 c* 1 03/07/2018 04/23/2018 Route: ORAL Sig: Take 1 capsule by mouth as needed. Disc: Reason for discontinue is not on file. gabapentin (NEURONTIN) 600 mg tablet 270 * 2 10/23/2017 04/23/2018 Class: Print RX Route: ORAL Sig: Take 1 tablet by mouth three times daily. Disc: Dosage adjustment Encounter Status:Closed by NARGIS DONALD MD on 04/23/18 PROGRESS Observed: 04/23/2018 Status: COMPLETED Source: [place] 1:51 PM [facility] [place] REPOSITORY HNO ID: [id number] Author: Stef Carlson Service: (none) Author Type: (none) Type: Progress Notes Filed: 04/23/2018 5:46 PM Note Text: DTAP,TDAP,TD(1 - Tdap) due on 1974 ZOSTER VACCINE (SHINGRIX)(1 of 2) due on 2005 PROGRESS Observed: 03/07/2018 Status: COMPLETED Source: [place] 3:21 PM [facility] REPOSITORY HNO ID: [id number] Author: Cori Linares (Cammie) Paula Vasquez Service: (none) Author Type: Nurse Practitioner Type: Progress Notes Filed: 03/07/2018 3:32 PM Note Text: Patient presents with: Follow Up: 1 month; BP check Patient was started on hydrochlorothiazide and with follow- up labs was noted to be hyponatremic Therefore patient was told to discontinue use of HCTZ Blood pressures remain elevated, on average 150-160/90 Patient reports headaches have improved some, has been states when she is calm and blood pressure is low headaches are not present Patient frustrated that medications were changed and this electrode imbalance occurred With repeat labs approximately one week later sodium level did improve some Denies hyponatremic symptoms Patient also frustrated regarding neuropathy Does not like the high-dose of Neurontin she is on Requesting that we refill her Soma that she was previously prescribed, patient reports this is the only muscle relaxer that was effective Patient expressing frustration with healthcare systems, lab errors, miscommunications, etc. Patient states she will not be completing stress test as previously ordered She is done with all of this Patient frustrated with hospital bills as a result of [place] ED visit reports they will complete this down the road Patient working hard at home and in the yard, works harder than a man and does not have symptoms or trouble with this reports patient does not have symptoms that she is thinking about the [facility] HTN: Last 3 Encounter BP Readings: Date: BP: 03/07/2018 183/92 02/27/2018 187/73 02/07/2018 184/100[mariela bp[ PAST MEDICAL HISTORY Diagnosis Date - Anxiety - CAD (coronary artery disease) - Cellulitis of face 08/24/2015 - HTN (hypertension) - Hyperlipidemia pt refuses meds due to myalgias - Marginal zone lymphoma (HCC) 05/10/[address] Dyer yearly - Muscle spasm toes curl/ spread apart, started after chemo caused neuropathy - Non Hodgkin's lymphoma (HCC) 2004 - Peripheral neuropathy due to chemo - Tachycardia PAST SURGICAL HISTORY Procedure Laterality Date - BACK SURGERY HX - BONE MARROW ASP 2006 - CARDIAC CATH 2005 - FOOT BILATERAL OP SURGERY 2000 - HERNIA REPAIR HX X 2 - HYSTERECTOMY HX - PORTOCATH PLACEMENT 2005, 2010 - PTCA SNGL VSSL LD 2004 LAD stent - REMOVAL OF ACCESS PORT 05/01/2013 - REMOVAL SPLEEN, TOTAL 2004 pneumovax 2004 - REVISE MEDIAN N/CARPAL TUNNEL SURG 2006 Carpal tunnel decomp Lt - TOTAL ABDOM HYSTERECTOMY ? if pt has ovaries Current Outpatient Prescriptions on File Prior to Visit: ramipril (ALTACE) 5 mg capsule Take 1 capsule by mouth four times daily. gabapentin (NEURONTIN) 600 mg tablet Take 1 tablet by mouth three times daily. naproxen (NAPROSYN) 500 mg tablet Take 1 tablet by mouth twice daily with meals. aspirin 325 mg tablet Takes half tab daily No current facility-administered medications on file prior to visit. ALLERGIES Allergen Reactions - Penicillins Rash, Itching - Codeine Itching - Morphine Unknown - Rituximab Unknown PHYSICAL EXAMINATION: BP 183/92 (BP Site: Left Arm, BP Position: Sitting, BP Cuff Size: Regular Adult) Pulse 82 Temp 36.8 ?C (98.3 ?F) (Oral) Ht 160 cm (5' 3) Wt 66.5 kg (146 lb 11.2 oz) SpO2 95% BMI 25.99 kg/m? General appearance: alert, agitated, vocal Heart: regular rate and rhythm, without murmur Lungs: clear to auscultation, without rales or wheeze, good air exchange Lower Extremities: no edema ASSESSMENT/PLAN: 1. Essential hypertension - ICD9: 401.9, ICD10: I10 (primary diagnosis) - suboptimal control Patient unwilling at this time to try a different antihypertensive such as amlodipine Patient requesting that we attempt to increase one of HER- 2 current medications and hopes that she can tolerate this Patient currently taking Altace 5 mg and metoprolol 25 mg (1/2 tab) 4 times daily Patient to increase metoprolol to 50 mg 4 times a day - Encouraged dietary sodium restriction/DASH diet - Recommend home blood pressure monitoring, to bring results in on next visit - Recheck in 6 weeks as scheduled with PCP, sooner should new symptoms or problems arise. - Patient strongly encouraged to complete stress test as previously ordered - Goal of BP <140/90 - METOPROLOL SUCCINATE ER 50 MG TABLET,EXTENDED RELEASE 24 HR - BASIC METABOLIC PNL 2. Polyneuropathy associated with underlying disease (HCC) - ICD9: 357.4, ICD10: G63 D/w patient that we do not prescribed soma given its higher dependent tendencies Patient also previously prescribed flexeril, skelaxin and now baclofen To continue baclofen and neurontin Encouraged pain management consult - patient declined 3. Gastroesophageal reflux disease, esophagitis presence not specified - ICD9: 530.81, ICD10: K21.9 Stable Refill given - OMEPRAZOLE 40 MG CAPSULE,DELAYED RELEASE Cori Vasquez APRN.CNP PROGRESS Observed: 03/07/2018 Status: COMPLETED Source: [place] 1:09 PM [facility] REPOSITORY HNO ID: [id number] Author: Shonda Antonio MA Service: (none) Author Type: (none) Type: Progress Notes Filed: 03/07/2018 3:32 PM Note Text: DTAP,TDAP,TD(1 - Tdap) due on 1974 CNOV Observed: 03/07/2018 Status: COMPLETED Source: [place] 1:00 PM [facility] REPOSITORY Office Visit (FAMDNA) CRISTIANE SANTIAGO ([id number]) 1955 F Date Time Provider Department 03/07/18 1:00 PM OCRI LOOMIS ([facility])JHON During your visit today, we recorded the following information about you: Temperature Pulse Blood pressure Weight 98.3 degrees 82/minute 183/92 66.5 kg Height 1.6 m Shonda Antonio MA 03/07/2018 1:09 PM Signed Patient presents with: Follow Up: 1 month; BP check Shonda Antonio MA 03/07/2018 3:32 PM Signed DTAP,TDAP,TD(1 - Tdap) due on 1974 Cori Vasquez APRN.CNP 03/07/2018 3:32 PM Signed Patient presents with: Follow Up: 1 month; BP check Patient was started on hydrochlorothiazide and with follow- up labs was noted to be hyponatremic Therefore patient was told to discontinue use of HCTZ Blood pressures remain elevated, on average 150-160/90 Patient reports headaches have improved some, has been states when she is calm and blood pressure is low headaches are not present Patient frustrated that medications were changed and this electrode imbalance occurred With repeat labs approximately one week later sodium level did improve some Denies hyponatremic symptoms Patient also frustrated regarding neuropathy Does not like the high-dose of Neurontin she is on Requesting that we refill her Soma that she was previously prescribed, patient reports this is the only muscle relaxer that was effective Patient expressing frustration with healthcare systems, lab errors, miscommunications, etc. Patient states she will not be completing stress test as previously ordered She is done with all of this Patient frustrated with hospital bills as a result of [place] ED visit reports they will complete this down the road Patient working hard at home and in the yard, works harder than a man and does not have symptoms or trouble with this reports patient does not have symptoms that she is thinking about the [facility] HTN: Last 3 Encounter BP Readings: Date: BP: 03/07/2018 183/92 02/27/2018 187/73 02/07/2018 184/100[mariela bp[ PAST MEDICAL HISTORY Diagnosis Date - Anxiety - CAD (coronary artery disease) - Cellulitis of face 08/24/2015 - HTN (hypertension) - Hyperlipidemia pt refuses meds due to myalgias - Marginal zone lymphoma (HCC) 05/10/[address] 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 if pt has ovaries Current Outpatient Prescriptions on File Prior to Visit: ramipril (ALTACE) 5 mg capsule Take 1 capsule by mouth four times daily. gabapentin (NEURONTIN) 600 mg tablet Take 1 tablet by mouth three times daily. naproxen (NAPROSYN) 500 mg tablet Take 1 tablet by mouth twice daily with meals. aspirin 325 mg tablet Takes half tab daily No current facility-administered medications on file prior to visit. ALLERGIES Allergen Reactions - Penicillins Rash, Itching - Codeine Itching - Morphine Unknown - Rituximab Unknown PHYSICAL EXAMINATION: BP 183/92 (BP Site: Left Arm, BP Position: Sitting, BP Cuff Size: Regular Adult) Pulse 82 Temp 36.8 ?C (98.3 ?F) (Oral) Ht 160 cm (5' 3) Wt 66.5 kg (146 lb 11.2 oz) SpO2 95% BMI 25.99 kg/m? General appearance: alert, agitated, vocal Heart: regular rate and rhythm, without murmur Lungs: clear to auscultation, without rales or wheeze, good air exchange Lower Extremities: no edema ASSESSMENT/PLAN: 1. Essential hypertension - ICD9: 401.9, ICD10: I10 (primary diagnosis) - suboptimal control Patient unwilling at this time to try a different antihypertensive such as amlodipine Patient requesting that we attempt to increase one of HER- 2 current medications and hopes that she can tolerate this Patient currently taking Altace 5 mg and metoprolol 25 mg (1/2 tab) 4 times daily Patient to increase metoprolol to 50 mg 4 times a day - Encouraged dietary sodium restriction/DASH diet - Recommend home blood pressure monitoring, to bring results in on next visit - Recheck in 6 weeks as scheduled with PCP, sooner should new symptoms or problems arise. - Patient strongly encouraged to complete stress test as previously ordered - Goal of BP <140/90 - METOPROLOL SUCCINATE ER 50 MG TABLET,EXTENDED RELEASE 24 HR - BASIC METABOLIC PNL 2. Polyneuropathy associated with underlying disease (HCC) - ICD9: 357.4, ICD10: G63 D/w patient that we do not prescribed soma given its higher dependent tendencies Patient also previously prescribed flexeril, skelaxin and now baclofen To continue baclofen and neurontin Encouraged pain management consult - patient declined 3. Gastroesophageal reflux disease, esophagitis presence not specified - ICD9: 530.81, ICD10: K21.9 Stable Refill given - OMEPRAZOLE 40 MG CAPSULE,DELAYED RELEASE Cori Vasquez APRN.LINE ERECTOR APPRENTICE Referring Provider: CORI LOOMIS ([facility]) [[id number]] Allergies As of Date: 03/07/2018 Noted Allergy Reaction PENICILLINS 11/12/2010 2 - Rash 9 - Itching CODEINE 11/12/2010 9 - Itching MORPHINE 11/12/2010 16 - Unknown RITUXIMAB 11/12/2010 16 - Unknown Date Reviewed: 03/07/2018 Reviewed by: Cori Linares ([facility]) Paula Vasquez - Fully Assessed Reason for Visit: Follow Up [171] Cmt: 1 month; BP check Primary Visit Diagnosis:Essential hypertension [I10] Other Visit Diagnoses:Polyneuropathy associated with underlying disease (HCC) [G63] Gastroesophageal reflux disease, esophagitis presence not specified [K21.9] Order(s):baclofen (LIORESAL) 10 mg tabletTake 1 tablet by mouth three times daily.Disp: 90 tabletRfl: 3 Omeprazole 40 mg capsuleTake 1 capsule by mouth as needed.Disp: 90 capsuleRfl: 1 metoprolol succinate ER (TOPROL XL) 50 mg 24 hr tabletTake 2 tablets by mouth twice daily.Disp: 360 tabletRfl: 1 BASIC METABOLIC PNL [SQBMP] Order #: [id number] FUTURE Prescriptions as of 03/07/2018 Sig: BACLOFEN 10 MG TABLET Take 1 tablet by mouth three * OMEPRAZOLE 40 MG CAPSULE,FATEMEH* Take 1 capsule by mouth as ne* METOPROLOL SUCCINATE ER 50 MG* Take 2 tablets by mouth twice* RAMIPRIL 5 MG CAPSULE Take 1 capsule by mouth four * GABAPENTIN 600 MG TABLET Take 1 tablet by mouth three * NAPROXEN 500 MG TABLET Take 1 tablet by mouth twice * ASPIRIN 325 MG TABLET Takes half tab daily Problem List As Of Date 03/07/2018 Noted Resolved Lymphoma [C85.90] INVALID FOR* Marginal zone lymphoma [C85.80] INVALID FOR* Cellulitis of face [L03.211] INVALID FOR* Anxiety [F41.9] Peripheral neuropathy (HCC) [G62.9] More... Chest pain [R07.9] INVALID FOR* Gastroesophageal reflux disease [K21.9] INVALID FOR* Essential hypertension [I10] INVALID FOR* Visit Notes: >> Shonda Antonio MA MonMarch 07, 2018 1:08 PM Status: Signed Patient presents with: Follow Up: 1 month; BP check Prescriptions ordered this encounter Disp Refills Start End METOPROLOL SUCCINATE ER 50 MG TABLET* 180 * 1 03/07/2018 03/07/2018 Class: Med Update Route: ORAL Sig: Take 2 tablets by mouth twice daily. BACLOFEN 10 MG TABLET 90 t* 3 03/07/2018 Route: ORAL Sig: Take 1 tablet by mouth three times daily. OMEPRAZOLE 40 MG CAPSULE,DELAYED REL* 90 c* 1 03/07/2018 Route: ORAL Sig: Take 1 capsule by mouth as needed. METOPROLOL SUCCINATE ER 50 MG TABLET* 360 * 1 03/07/2018 Route: ORAL Sig: Take 2 tablets by mouth twice daily. Medications Discontinued During This Encounter Hydrochlorothiazide 12.5 mg capsule 30 c* 1 02/07/2018 03/07/2018 Route: ORAL Sig: Take 1 capsule by mouth once daily. Disc: Reason for discontinue is not on file. metoprolol succinate ER (TOPROL XL) * 180 * 1 10/23/2017 03/07/2018 Class: Print RX Route: ORAL Sig: Take 1 tablet by mouth twice daily. Disc: Reason for discontinue is not on file. baclofen (LIORESAL) 10 mg tablet 90 t* 2 12/19/2017 03/07/2018 Route: ORAL Sig: Take 1 tablet by mouth three times daily as needed. Patient taking differently: Take 10 mg by mouth three times daily. Disc: Reason for discontinue is not on file. Omeprazole 40 mg capsule 90 c* 1 02/07/2018 03/07/2018 Route: ORAL Sig: Take 1 capsule by mouth as needed. Disc: Reason for discontinue is not on file. metoprolol succinate ER (TOPROL XL) * 180 * 1 03/07/2018 03/07/2018 Class: Med Update Route: ORAL Sig: Take 2 tablets by mouth twice daily. Disc: Reason for discontinue is not on file. Encounter Status:Closed by CORI LOOMIS CNP on 03/07/18 CNCO Observed: 03/02/2018 Status: COMPLETED Source: [place] 1:37 PM [facility] REPOSITORY HNO ID: [id number] Author: Mammography Coordinator Service: (none) Author Type: Physician Type: Letter Filed: 03/05/2018 11:34 PM Note Text: March 02, 2018 PID: [id number] Cristiane Santiago [id number] [place] [address] Dear Ms. Santiago, We are pleased to inform you that the results of your recent breast imaging exam on 02/28/2018 are normal. Your mammogram demonstrates that you have dense breast tissue, which could hide abnormalities. Dense breast tissue, in and of itself, is a relatively common condition. Therefore, this information is not provided to cause undue concern; rather, it is to raise your awareness and promote discussion with your health care provider regarding the presence of dense breast tissue in addition to other risk factors. Early detection of cancer is very important. We also understand recommendations regarding breast cancer screening are controversial. Please discuss with your primary care provider which strategy is best for you and whether a mammogram is right for you. Your imaging studies and report will be kept on file at [facility] as part of your permanent medical record and are available for your continuing care. Thank you for allowing us to help in meeting your health care needs. Sincerely, Dr. Burns Interpreting Radiologist [facility]. (Normal over 40) [facility] SCREENING Observed: 02/28/2018 Status: F Source: [place] 12:41 PM [facility] OTHER [facility] REPOSITORY * * *Final Report* * * DATE OF EXAM: Feb 28 2018 12:41PM YAMILETH [id number] - [facility] SCREENING / PROCEDURE REASON: Z12.31-Encounter for screening mammogram for malignant neoplasm of breast * * * * Physician Interpretation * * * * #[id number] - [facility] SCREENING BILATERAL DIGITAL SCREENING MAMMOGRAM WITH CAD: 02/28/2018 HISTORY: Z12.31-Encounter For Screening Mammogram For Malignant Neoplasm Of Breast /Screening Mammogram - patient reports NO symptoms. RESULT: TECHNIQUE: The study was acquired using full field digital technology and interpreted from soft copy. Current study was also evaluated with a Computer Aided Detection (CAD). Comparison is made to exams dated: 03/01/2017 mammogram and 02/20/2015 mammogram - [facility]. The tissue of both breasts is heterogeneously dense. This may lower the sensitivity of mammography. Areas of asymmetry and nodularity are stable. No new or enlarging mass, suspicious calcifications or significant change. No significant masses, calcifications, or other findings are seen in either breast. There has been no significant interval change. IMPRESSION: BENIGN FINDING There is no mammographic evidence of malignancy. A 1 year screening mammogram is recommended. Trista simmons/lizy:03/02/2018 13:37:56 Mgmt Specialist: Laura CADENA)(Laureano), [facility] letter sent: Normal over 40 Mammogram BI-RADS: 2 Benign finding Content Coordinator: Lizy Transcribe Date/Time: Feb 28 2018 12:25P Dictated by : TRISTA BURNS MD This examination was interpreted and the report reviewed and electronically signed by: TRISTA BURNS MD on Mar 02 2018 1:37PM EST [id number] COMP METABOLIC PANEL Collected: 02/27/2018 Status: F Source: [place] 2:45 PM [facility] REPOSITORY TYPE CODE TESTS RESULT OUT OF REFERENCE UNITS RANGE LAB TP 6.3-8.0 g/dL Low Protein, Total 6.2 LAB ALB 3.9-4.9 g/dL Low Albumin 3.7 LAB CA 8.5-10.2 mg/dL Calcium, Total 9.0 LAB TBIL 0.2-1.3 mg/dL Bilirubin, Total 0.3 LAB ALKP 32-117 U/L Alkaline Phosphatase 109 LAB AST 13-35 U/L AST 22 Result Comment: Results may be falsely increased due to interference by hemolysis. Suggest reorder as clinically indicated. LAB GLU 74-99 mg/dL Low Glucose 70 Result Comment: The [place] Diabetes Association (ADA) provides guidance for cutoff values for fasting glucose and random glucose. The ADA defines fasting as no caloric intake for at least 8 hours. Fas ting plasma glucose results between 100 to 125 mg/dL indicate increased risk for diabetes (prediabetes). Fasting plasma glucose results greater than or equal to 126 mg/dL meet the criteria for diagnosis of diabetes. In the absence of unequivocal hyperglycemia, results should be confirmed by repeat testing. In a patient with classic symptoms of hyperglycemia or hyperglycemic crisis, random plasma glucose results greater than or equal to 200 mg/dL meet the criteria for diagnosis of diabetes. Reference: Standards of Medical Care in Diabetes 2016, [place] Diabetes Association. Diabetes Care. 2016.39(Suppl 1). LAB BUN 7-21 mg/dL BUN Low 5 LAB CRET 0.58-0.96 mg/dL Creatinine Low 0.51 LAB NA 136-144 mmol/L Sodium Low 127 LAB K 3.7-5.1 mmol/L Potassium 3.8 LAB CL 97-105 mmol/L Chloride Low 87 LAB CO2 22-30 mmol/L CO2 26 LAB AGAP 9-18 mmol/L Anion Gap 14 LAB ALT 7-38 U/L ALT 11 LAB GFRAA eGFR- Amer. >60 LAB GFRNAA . eGFR-All Other Races >60 Result Comment: eGFR (Estimated GFR) Units of measure: mL/min/1.73 meters squared eGFR is derived from the reexpressed MDRD Study equation using the following parameters: serum creatinine, age, gender and race. The creatinine assay has been calibrated to be traceable to IDMS. An eGFR <60 mL/min/1.73m2 for >3 months is consistent with chronic kidney disease. Refer to KDOQI guidelines for clinical interpretation. In patients with unstable renal function, e.g. those with acute kidney injury, the eGFR may not accurately reflect actual GFR. Performed By: #### CMP #### [facility] [address] [place] [address] #### LD6 #### [facility] [employer] [address] [id number] LD Collected: 02/27/2018 Status: F Source: [facility] 2:45 PM [facility] REPOSITORY TYPE CODE TESTS RESULT OUT OF RANGE REFERENCE UNITS LAB LD 135-214 U/L High LD 414 Result Comment: Results may be falsely increased due to interference by hemolysis. Suggest reorder as clinically indicated. Performed By: #### CMP #### [facility] [address] [place] [address] #### LD6 #### [facility] [employer] [address] [address] PROGRESS Observed: 02/27/2018 Status: COMPLETED Source: [place] 2:22 PM [facility] [place] REPOSITORY HNO ID: [id number] Author: Anuj Dyer Service: (none) Author Type: Physician Type: Progress Notes Filed: 03/02/2018 4:34 AM Note Text: HISTORY OF PRESENT ILLNESS: Cristiane Santiago is a 63 year old female, history of recurrent marginal zone lymphoma, comes in for follow up. She is feeling well, notes no fevers or sweats. Reviewed labs. Sodium down since starting diuretic. Dr Donald has requested recheck. CLINICAL IMPRESSION: History of recurrent marginal zone lymphoma, no clinical evidence of disease. RECOMMENDATION/PLAN: 1. Repeat LD. 2. Follow up 1 year, or sooner if labs indicate.. Written and verbal health teaching given to patient, patient verbalizes understanding and agrees with treatment plan. PAST MEDICAL HISTORY Diagnosis Date - Anxiety - CAD (coronary artery disease) - Cellulitis of face 08/24/2015 - HTN (hypertension) - Hyperlipidemia pt refuses meds due to myalgias - Marginal zone lymphoma (HCC) 05/10/[address] 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 if pt has ovaries FAMILY HISTORY Problem Relation Age of Onset - Cancer Father ? type - Diabetes Mother - Hypertension Mother - Breast Cancer Maternal Aunt and ovarian cancer - leukemia [OTHER] Maternal Aunt 2 cousins SOCIAL HISTORY Marital Status: Tobacco Use: Quit 04/17/2007. Alcohol Use: No Drug Use: Not on file Sexual Activity: Not on file ALLERGIES: Review of patient's allergies indicates: Penicillins Rash, Itching Codeine Itching Morphine Unknown Rituximab Unknown CURRENT OUTPATIENT MEDICATIONS: Hydrochlorothiazide 12.5 mg capsule Take 1 capsule by mouth once daily. Omeprazole 40 mg capsule Take 1 capsule by mouth as needed. baclofen (LIORESAL) 10 mg tablet Take 1 tablet by mouth three times daily as needed. metoprolol succinate ER (TOPROL XL) 50 mg 24 hr tablet Take 1 tablet by mouth twice daily. ramipril (ALTACE) 5 mg capsule Take 1 capsule by mouth four times daily. gabapentin (NEURONTIN) 600 mg tablet Take 1 tablet by mouth three times daily. naproxen (NAPROSYN) 500 mg tablet Take 1 tablet by mouth twice daily with meals. aspirin 325 mg tablet Takes half tab daily REVIEW OF SYSTEMS: GENERAL: No fever, night sweats, weight loss or malaise. MUSCULOSKELETAL: Negative for joint pain or swelling, back pain or muscle pain. NEUROLOGIC: No history of headaches, syncope, paralysis, seizures or tremors. HEENT: Negative for frequent or significant headaches, no changes in hearing or vision, no nose bleeds or other nasal problems. PSYCH: Negative for sleep disturbance, mood disorder and recent psychosocial stressors. NECK: Negative for lumps, goiter, pain and significant neck swelling. CARDIOVASCULAR: Negative for chest pain, leg swelling, or palpitations. RESPIRATORY: No cough or shortness of breath. GI: Negative for abdominal discomfort, blood in stools or black stools or change in bowel habits, or nausea. : No history of dysuria, frequency or incontinence. SKIN: Negative for lesions, rash or itching. HEMATOLOGY/LYMPHOLOGY: Negative for prolonged bleeding, bruising easily or swollen nodes. ENDOCRINE: Negative for cold or heat intolerance, polyuria, polydipsia and goiter. RHEUMATOLOGIC: negative All other reviewed and negative other than HPI. PHYSICAL EXAMINATION: VITAL SIGNS: BP 187/73 Pulse 66 Temp (Src) 98 (Oral) Wt 149 lb 11.2 oz (67.9kg) SpO2 98% GENERAL APPEARANCE: Well appearing, in no acute distress, alert and oriented x3, well-hydrated, well nourished. SKIN: Skin color, texture, turgor normal. No needle tracks, ulcers, rashes or lesions. HEAD: Normocephalic. Pupils are round, equal, reactive to light and accomodation. Mouth clear, no thrush. NECK: Supple, no JVD or lymphadenopathy, thyroid symmetric, normal size, no bruits. Resolving spider bites on back of neck, no sign infection. ABDOMEN: Abdomen soft, non-tender with no organomegaly, bowel sounds normal, no masses. BACK: Non tender to gentle percussion. Spine range of motion normal. Muscular strength intact, no joint swelling, deformity or tenderness. NEURO: Intact motor and sensory function in both upper and lower extremities. Oriented x3. EXTREMITIES: Extremities normal. No deformities, edema, or skin discoloration. Good capillary refill. 1 cm node in right axilla, unchanged. MUSCULOSKELETAL: Muscle strength intact, no joint swelling or deformity. Electronically Signed: Anuj Dyer MD February 27, 2018 CNOVSP Observed: 02/27/2018 Status: COMPLETED Source: [place] 1:40 PM [facility] [place] REPOSITORY Visit (SP) Office (HEMMED) CRISTIANE SANTIAGO ([id number]) 1955 F Date Time Provider Department 02/27/18 1:40 PM ANUJ DYER During your visit today, we recorded the following information about you: Temperature Pulse Blood pressure Weight 98 degrees 66/minute 187/73 67.9 kg John Peace MA, MA 02/27/2018 1:57 PM Signed NAME: Cristiane Santiago DATE: February 27, 2018 The patient presents today for: Follow Up Patient has been identified by name and . Allergies and Medications reviewed. AMB ROOMING INTAKE FLOWSHEET DATA Risk Screening Do you have concerns about personal safety or safety in the home?: No JACE Lopez MD 03/02/2018 4:34 AM Signed HISTORY OF PRESENT ILLNESS: Cristiane Santiago is a 63 year old female, history of recurrent marginal zone lymphoma, comes in for follow up. She is feeling well, notes no fevers or sweats. Reviewed labs. Sodium down since starting diuretic. Dr Donald has requested recheck. CLINICAL IMPRESSION: History of recurrent marginal zone lymphoma, no clinical evidence of disease. RECOMMENDATION/PLAN: 1. Repeat LD. 2. Follow up 1 year, or sooner if labs indicate.. Written and verbal health teaching given to patient, patient verbalizes understanding and agrees with treatment plan. PAST MEDICAL HISTORY Diagnosis Date - Anxiety - CAD (coronary artery disease) - Cellulitis of face 08/24/2015 - HTN (hypertension) - Hyperlipidemia pt refuses meds due to myalgias - Marginal zone lymphoma (HCC) 05/10/[address] 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 if pt has ovaries FAMILY HISTORY Problem Relation Age of Onset - Cancer Father ? type - Diabetes Mother - Hypertension Mother - Breast Cancer Maternal Aunt and ovarian cancer - leukemia [OTHER] Maternal Aunt 2 cousins SOCIAL HISTORY Marital Status: Tobacco Use: Quit 04/17/2007. Alcohol Use: No Drug Use: Not on file Sexual Activity: Not on file ALLERGIES: Review of patient's allergies indicates: Penicillins Rash, Itching Codeine Itching Morphine Unknown Rituximab Unknown CURRENT OUTPATIENT MEDICATIONS: Hydrochlorothiazide 12.5 mg capsule Take 1 capsule by mouth once daily. Omeprazole 40 mg capsule Take 1 capsule by mouth as needed. baclofen (LIORESAL) 10 mg tablet Take 1 tablet by mouth three times daily as needed. metoprolol succinate ER (TOPROL XL) 50 mg 24 hr tablet Take 1 tablet by mouth twice daily. ramipril (ALTACE) 5 mg capsule Take 1 capsule by mouth four times daily. gabapentin (NEURONTIN) 600 mg tablet Take 1 tablet by mouth three times daily. naproxen (NAPROSYN) 500 mg tablet Take 1 tablet by mouth twice daily with meals. aspirin 325 mg tablet Takes half tab daily REVIEW OF SYSTEMS: GENERAL: No fever, night sweats, weight loss or malaise. MUSCULOSKELETAL: Negative for joint pain or swelling, back pain or muscle pain. NEUROLOGIC: No history of headaches, syncope, paralysis, seizures or tremors. HEENT: Negative for frequent or significant headaches, no changes in hearing or vision, no nose bleeds or other nasal problems. PSYCH: Negative for sleep disturbance, mood disorder and recent psychosocial stressors. NECK: Negative for lumps, goiter, pain and significant neck swelling. CARDIOVASCULAR: Negative for chest pain, leg swelling, or palpitations. RESPIRATORY: No cough or shortness of breath. GI: Negative for abdominal discomfort, blood in stools or black stools or change in bowel habits, or nausea. : No history of dysuria, frequency or incontinence. SKIN: Negative for lesions, rash or itching. HEMATOLOGY/LYMPHOLOGY: Negative for prolonged bleeding, bruising easily or swollen nodes. ENDOCRINE: Negative for cold or heat intolerance, polyuria, polydipsia and goiter. RHEUMATOLOGIC: negative All other reviewed and negative other than HPI. PHYSICAL EXAMINATION: VITAL SIGNS: BP 187/73 Pulse 66 Temp (Src) 98 (Oral) Wt 149 lb 11.2 oz (67.9kg) SpO2 98% GENERAL APPEARANCE: Well appearing, in no acute distress, alert and oriented x3, well-hydrated, well nourished. SKIN: Skin color, texture, turgor normal. No needle tracks, ulcers, rashes or lesions. HEAD: Normocephalic. Pupils are round, equal, reactive to light and accomodation. Mouth clear, no thrush. NECK: Supple, no JVD or lymphadenopathy, thyroid symmetric, normal size, no bruits. Resolving spider bites on back of neck, no sign infection. ABDOMEN: Abdomen soft, non-tender with no organomegaly, bowel sounds normal, no masses. BACK: Non tender to gentle percussion. Spine range of motion normal. Muscular strength intact, no joint swelling, deformity or tenderness. NEURO: Intact motor and sensory function in both upper and lower extremities. Oriented x3. EXTREMITIES: Extremities normal. No deformities, edema, or skin discoloration. Good capillary refill. 1 cm node in right axilla, unchanged. MUSCULOSKELETAL: Muscle strength intact, no joint swelling or deformity. Electronically Signed: Anuj Dyer MD February 27, 2018 Referring Provider: ANUJ DYER [[id number]] Allergies As of Date: 02/27/2018 Noted Allergy Reaction PENICILLINS 11/12/2010 2 - Rash 9 - Itching CODEINE 11/12/2010 9 - Itching MORPHINE 11/12/2010 16 - Unknown RITUXIMAB 11/12/2010 16 - Unknown Date Reviewed: 02/27/2018 Reviewed by: John Peace MA - Fully Assessed Reason for Visit: Follow Up [171] Primary Visit Diagnosis:Marginal zone lymphoma (HCC) [C85.80] Order(s):LD LACTATE DEHYDRO [SQLD6] Order #: [id number] FUTURE Prescriptions as of 02/27/2018 Sig: HYDROCHLOROTHIAZIDE 12.5 MG C* Take 1 capsule by mouth once * OMEPRAZOLE 40 MG CAPSULE,FATEMEH* Take 1 capsule by mouth as ne* BACLOFEN 10 MG TABLET Take 1 tablet by mouth three * Patient taking differently: Take 10 mg by mouth three jenni* METOPROLOL SUCCINATE ER 50 MG* Take 1 tablet by mouth twice * RAMIPRIL 5 MG CAPSULE Take 1 capsule by mouth four * GABAPENTIN 600 MG TABLET Take 1 tablet by mouth three * NAPROXEN 500 MG TABLET Take 1 tablet by mouth twice * ASPIRIN 325 MG TABLET Takes half tab daily Problem List As Of Date 02/27/2018 Noted Resolved Lymphoma [C85.90] INVALID FOR* Marginal zone lymphoma [C85.80] INVALID FOR* Cellulitis of face [L03.211] INVALID FOR* Anxiety [F41.9] Peripheral neuropathy (HCC) [G62.9] More... Chest pain [R07.9] INVALID FOR* Gastroesophageal reflux disease [K21.9] INVALID FOR* Essential hypertension [I10] INVALID FOR* Visit Notes: >> John Rick) JACE Peace February 27, 2018 1:57 PM Status: Signed NAME: Cristiane Santiago DATE: February 27, 2018 The patient presents today for: Follow Up Patient has been identified by name and . Allergies and Medications reviewed. AMB ROOMING INTAKE FLOWSHEET DATA Risk Screening Do you have concerns about personal safety or safety in the home?: No John Peace MA Encounter Status:Closed by ANUJ DYER MD on 03/02/18 CNPN Observed: 02/22/2018 Status: COMPLETED Source: [place] 12:00 AM [facility] REPOSITORY Telephone ([facility]AM[facility]) CRISTIANE SANTIAGO ([id number]) 1955 F Date Time Provider Department 02/22/18 NARGIS DONALD During your visit today, we recorded the following information about you: Ino Strange) 02/22/2018 8:09 PM Signed Placed results on dr donald's desk for review Cori Loomis ([facility]) 02/23/2018 11:15 AM Signed Reviewed. These were ordered by Dr. Dyer. Upon review it is noted that her sodium is 123. This may be caused by her use of hydrochlorothiazide. Please review hyponatremic symptoms and ask if any are present. If so she will need to go to ED for further eval and treatment. If she has not taken her hydrochlorothiazide yet today she should hold this. Please let me know above lesly. Ino Flores (Rn), RN 02/23/2018 12:59 PM Signed Notified patient of providers message below. Patient denied nausea, vomiting, headache, confusion, fatigue, irritability, loss of appetite or muscle cramps. Patient stated, I have $3000 in ED bills and will not be getting my labs rechecked. Spoke with Cori and since patient will not be rechecking the sodium lab, HCTZ should be held indefinitely. Patient will follow up with Dr. Dyer on 02/27 and Aissatou on 03/07. Encouraged patient to monitor BP at home. Just a FYI. Allergies As of Date: 02/22/2018 Noted Allergy Reaction PENICILLINS 11/12/2010 2 - Rash 9 - Itching CODEINE 11/12/2010 9 - Itching MORPHINE 11/12/2010 16 - Unknown RITUXIMAB 11/12/2010 16 - Unknown Date Reviewed: 02/07/2018 Reviewed by: Cori Loomis ([facility]) - Fully Assessed Reason for Visit: [facility] [Other] Cmt: Results placed in psychiatric Order(s):CBC WITHOUT PLATELET [[id number]] Order #: [id number]: 1 CBC W/DIFF/PLT (EXTERNAL LAB [facility]) [[id number]] Order #: [id number] CMP (EXTERNAL LAB [facility]) [[id number]] Order #: [id number] Prescriptions as of 02/22/2018 Sig: HYDROCHLOROTHIAZIDE 12.5 MG C* Take 1 capsule by mouth once * OMEPRAZOLE 40 MG CAPSULE,FATEMEH* Take 1 capsule by mouth as ne* ALPRAZOLAM 1 MG TABLET Take 1 tablet by mouth three * Patient taking differently: Take 1 mg by mouth three time* BACLOFEN 10 MG TABLET Take 1 tablet by mouth three * Patient taking differently: Take 10 mg by mouth three jenni* METOPROLOL SUCCINATE ER 50 MG* Take 1 tablet by mouth twice * RAMIPRIL 5 MG CAPSULE Take 1 capsule by mouth four * GABAPENTIN 600 MG TABLET Take 1 tablet by mouth three * NAPROXEN 500 MG TABLET Take 1 tablet by mouth twice * ASPIRIN 325 MG TABLET Takes half tab daily Problem List As Of Date 02/22/2018 Noted Resolved Lymphoma [C85.90] INVALID FOR* Marginal zone lymphoma [C85.80] INVALID FOR* Cellulitis of face [L03.211] INVALID FOR* Anxiety [F41.9] Peripheral neuropathy (HCC) [G62.9] More... Chest pain [R07.9] INVALID FOR* Gastroesophageal reflux disease [K21.9] INVALID FOR* Essential hypertension [I10] INVALID FOR* Encounter Status:Closed by INO STRANGE MA on 02/22/18 ALEXIS Observed: 02/20/2018 Status: COMPLETED Source: [place] 12:00 AM [facility] REPOSITORY Patient Outreach ([facility]) CRISTIANE SANTIAGO ([id number]) 1955 F Date Time Provider Department 02/20/18 NARGIS DONALD [facility] During your visit today, we recorded the following information about you: Allergies As of Date: 02/20/2018 Noted Allergy Reaction PENICILLINS 11/12/2010 2 - Rash 9 - Itching CODEINE 11/12/2010 9 - Itching MORPHINE 11/12/2010 16 - Unknown RITUXIMAB 11/12/2010 16 - Unknown Date Reviewed: 02/07/2018 Reviewed by: Cori Linares ([facility]) Puala Vasquez - Fully Assessed Visit Diagnosis:Medication management [Z79.899] Order(s):LIPID PANEL BASIC [SQLIPB] Order #: [id number] FUTURE Prescriptions as of 02/20/2018 Sig: X HYDROCHLOROTHIAZIDE 12.5 MG C* Take 1 capsule by mouth once * X OMEPRAZOLE 40 MG CAPSULE,FATEMEH* Take 1 capsule by mouth as ne* ALPRAZOLAM 1 MG TABLET Take 1 tablet by mouth three * Patient taking differently: Take 1 mg by mouth three time* X BACLOFEN 10 MG TABLET Take 1 tablet by mouth three * Patient taking differently: Take 10 mg by mouth three jenni* RAMIPRIL 5 MG CAPSULE Take 1 capsule by mouth four * X METOPROLOL SUCCINATE ER 50 MG* Take 1 tablet by mouth twice * X GABAPENTIN 600 MG TABLET Take 1 tablet by mouth three * NAPROXEN 500 MG TABLET Take 1 tablet by mouth twice * ASPIRIN 325 MG TABLET Takes half tab daily Problem List As Of Date 02/20/2018 Noted Resolved Lymphoma [C85.90] INVALID FOR* Marginal zone lymphoma [C85.80] INVALID FOR* Cellulitis of face [L03.211] INVALID FOR* Anxiety [F41.9] Peripheral neuropathy (HCC) [G62.9] More... Chest pain [R07.9] INVALID FOR* Gastroesophageal reflux disease [K21.9] INVALID FOR* Essential hypertension [I10] INVALID FOR* Encounter Status:Closed by [employer], PRODUSER on 07/27/18 PROGRESS Observed: 02/07/2018 Status: COMPLETED Source: [place] 1:39 PM [facility] [place] REPOSITORY O ID: [id number] Author: Cori Linares ([employer]) Paula Vasquez Service: (none) Author Type: Nurse Practitioner Type: Progress Notes Filed: 02/07/2018 2:03 PM Note Text: Patient presents with: Hospital Follow Up: 01/27 for chest pain, feeling better today Patient went to the hospital on for complaint of chest pain that radiated to back between shoulder blades, left arm pain and hand numbness, and shortness of breath Patient was transferred to [facility] in hopes a stress test would be completed, since this was on the weekend patient was discharged several hours later and told to follow-up on an outpatient basis-patient was given order for nuclear med stress test Chest pain and associated symptoms were thought to be a result of uncontrolled acid reflux-patient was started on Prilosec 40 mg which she reports has helped with symptoms No current chest pain, shortness of breath or other respiratory symptoms Has occasional cough, still smoking-is interested in quitting HTN: Ms. Santiago noted elevated bp recently with average at home running around 180/100. Patient c/o HAs. Patient denies any side effects of her medication(s) and is compliant with their regimen, but is very sensitive to bp medications which is why she takes her toprol and altace QID. Last 3 Encounter BP Readings: Date: BP: 02/07/2018 184/100[mariela bp[ 01/27/2018 157/84 01/27/2018 150/71 PAST MEDICAL HISTORY Diagnosis Date - Anxiety - CAD (coronary artery disease) - Cellulitis of face 08/24/2015 - HTN (hypertension) - Hyperlipidemia pt refuses meds due to myalgias - Marginal zone lymphoma (HCC) 05/10/[address] 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 if pt has ovaries Current Outpatient Prescriptions on File Prior to Visit: ALPRAZolam (XANAX) 1 mg tablet Take 1 tablet by mouth three times daily as needed for up to 30 days. (Patient taking differently: Take 1 mg by mouth three times daily. ) baclofen (LIORESAL) 10 mg tablet Take 1 tablet by mouth three times daily as needed. (Patient taking differently: Take 10 mg by mouth three times daily. ) metoprolol succinate ER (TOPROL XL) 50 mg 24 hr tablet Take 1 tablet by mouth twice daily. ramipril (ALTACE) 5 mg capsule Take 1 capsule by mouth four times daily. gabapentin (NEURONTIN) 600 mg tablet Take 1 tablet by mouth three times daily. naproxen (NAPROSYN) 500 mg tablet Take 1 tablet by mouth twice daily with meals. aspirin 325 mg tablet Takes half tab daily No current facility-administered medications on file prior to visit. ALLERGIES Allergen Reactions - Penicillins Rash, Itching - Codeine Itching - Morphine Unknown - Rituximab Unknown PHYSICAL EXAMINATION: BP 184/100 Pulse 69 Temp 36.9 ?C (98.4 ?F) (Oral) Ht 160 cm (5' 3) Wt 65.8 kg (145 lb) SpO2 98% BMI 25.69 kg/m2 General appearance: alert, cooperative, pleasant, in no acute distress Heart: regular rate and rhythm, without murmur Lungs: clear to auscultation, without rales or wheeze, good air exchange Abdomen: soft, nontender, nondistend, NABS, no HSM, no palpable masses Lower Extremities: no edema, normal DP/PT pulses ASSESSMENT/PLAN: 1. Hospital discharge follow-up - ICD9: V67.59, ICD10: Z09 (primary diagnosis) 2. Chest pain, unspecified type - ICD9: 786.50, ICD10: R07.9 ED and hospital notes, lab, imaging, etc. reviewed Patient to schedule stress test Will repeat chest x-ray in approximately 3-4 weeks To continue Prilosec 40 mg daily Warning signs to seek treatment for discussed - XR CHEST 2V FRONTAL/LAT 3. Essential hypertension - ICD9: 401.9, ICD10: I10 - suboptimal control - Continue current medication(s) - Add HCTZ at 12.5 mg - patient with med sensitivities so we will start this at a low dose and increase as we are able - Check metabolic panel prior to f/u OV - Encouraged dietary sodium restriction/DASH diet - Recommend home blood pressure monitoring, to bring results in on next visit - Follow up in 1 month for BP recheck - to contact office sooner if bp remains or becomes more elevated. - Goal of BP <14/90 - HYDROCHLOROTHIAZIDE 12.5 MG CAPSULE 4. Gastroesophageal reflux disease, esophagitis presence not specified - ICD9: 530.81, ICD10: K21.9 Continue prilosec - OMEPRAZOLE 40 MG CAPSULE,DELAYED RELEASE 5. Tobacco use - ICD9: 305.1, ICD10: Z72.0 - Cessation encouraged. - Physiologic and physical aspects of tobacco addiction as well as strategies for quitting were discussed. - d/w patient tx with wellbutrin - patient seems interested, will re-evaluate at f/u OV in 4 weeks as I am hesitant to start / change too much at once 6. Encounter for screening mammogram for breast cancer - ICD9: V76.12, ICD10: Z12.31 - [facility] SCREENING F/u with hem/onc next month as scheduled Cori Vasquez APRN.CAMMIE NOLAND Observed: 02/07/2018 Status: COMPLETED Source: [place] 1:20 PM [facility] REPOSITORY Office Visit (FAM[facility]) CRISTIANE SANTIAGO David ([id number]) 1955 F Date Time Provider Department 02/07/18 1:20 PM CORI LOOMIS (CAMMIE)JHON During your visit today, we recorded the following information about you: Temperature Pulse Blood pressure Weight 98.4 degrees 69/minute 184/100 65.8 kg Height 1.6 m Zack Aguilar 02/07/2018 2:03 PM Signed MAMMOGRAM due on 03/01/2018 Cori Vasquez APRN.CNP 02/07/2018 2:03 PM Signed Patient presents with: Hospital Follow Up: 01/27 for chest pain, feeling better today Patient went to the hospital on 14 for complaint of chest pain that radiated to back between shoulder blades, left arm pain and hand numbness, and shortness of breath Patient was transferred to [facility] in hopes a stress test would be completed, since this was on the weekend patient was discharged several hours later and told to follow-up on an outpatient basis-patient was given order for nuclear med stress test Chest pain and associated symptoms were thought to be a result of uncontrolled acid reflux-patient was started on Prilosec 40 mg which she reports has helped with symptoms No current chest pain, shortness of breath or other respiratory symptoms Has occasional cough, still smoking-is interested in quitting HTN: Ms. Santiago noted elevated bp recently with average at home running around 180/100. Patient c/o HAs. Patient denies any side effects of her medication(s) and is compliant with their regimen, but is very sensitive to bp medications which is why she takes her toprol and altace QID. Last 3 Encounter BP Readings: Date: BP: 02/07/2018 184/100[mariela bp[ 01/27/2018 157/84 01/27/2018 150/71 PAST MEDICAL HISTORY Diagnosis Date - Anxiety - CAD (coronary artery disease) - Cellulitis of face 08/24/2015 - HTN (hypertension) - Hyperlipidemia pt refuses meds due to myalgias - Marginal zone lymphoma (HCC) 05/10/[address] 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 if pt has ovaries Current Outpatient Prescriptions on File Prior to Visit: ALPRAZolam (XANAX) 1 mg tablet Take 1 tablet by mouth three times daily as needed for up to 30 days. (Patient taking differently: Take 1 mg by mouth three times daily. ) baclofen (LIORESAL) 10 mg tablet Take 1 tablet by mouth three times daily as needed. (Patient taking differently: Take 10 mg by mouth three times daily. ) metoprolol succinate ER (TOPROL XL) 50 mg 24 hr tablet Take 1 tablet by mouth twice daily. ramipril (ALTACE) 5 mg capsule Take 1 capsule by mouth four times daily. gabapentin (NEURONTIN) 600 mg tablet Take 1 tablet by mouth three times daily. naproxen (NAPROSYN) 500 mg tablet Take 1 tablet by mouth twice daily with meals. aspirin 325 mg tablet Takes half tab daily No current facility-administered medications on file prior to visit. ALLERGIES Allergen Reactions - Penicillins Rash, Itching - Codeine Itching - Morphine Unknown - Rituximab Unknown PHYSICAL EXAMINATION: BP 184/100 Pulse 69 Temp 36.9 ?C (98.4 ?F) (Oral) Ht 160 cm (5' 3ANDquot;) Wt 65.8 kg (145 lb) SpO2 98% BMI 25.69 kg/m2 General appearance: alert, cooperative, pleasant, in no acute distress Heart: regular rate and rhythm, without murmur Lungs: clear to auscultation, without rales or wheeze, good air exchange Abdomen: soft, nontender, nondistend, NABS, no HSM, no palpable masses Lower Extremities: no edema, normal DP/PT pulses ASSESSMENT/PLAN: 1. Hospital discharge follow-up - ICD9: V67.59, ICD10: Z09 (primary diagnosis) 2. Chest pain, unspecified type - ICD9: 786.50, ICD10: R07.9 ED and hospital notes, lab, imaging, etc. reviewed Patient to schedule stress test Will repeat chest x-ray in approximately 3-4 weeks To continue Prilosec 40 mg daily Warning signs to seek treatment for discussed - XR CHEST 2V FRONTAL/LAT 3. Essential hypertension - ICD9: 401.9, ICD10: I10 - suboptimal control - Continue current medication(s) - Add HCTZ at 12.5 mg - patient with med sensitivities so we will start this at a low dose and increase as we are able - Check metabolic panel prior to f/u OV - Encouraged dietary sodium restriction/DASH diet - Recommend home blood pressure monitoring, to bring results in on next visit - Follow up in 1 month for BP recheck - to contact office sooner if bp remains or becomes more elevated. - Goal of BP ANDlt;14/90 - HYDROCHLOROTHIAZIDE 12.5 MG CAPSULE 4. Gastroesophageal reflux disease, esophagitis presence not specified - ICD9: 530.81, ICD10: K21.9 Continue prilosec - OMEPRAZOLE 40 MG CAPSULE,DELAYED RELEASE 5. Tobacco use - ICD9: 305.1, ICD10: Z72.0 - Cessation encouraged. - Physiologic and physical aspects of tobacco addiction as well as strategies for quitting were discussed. - d/w patient tx with wellbutrin - patient seems interested, will re-evaluate at f/u OV in 4 weeks as I am hesitant to start / change too much at once 6. Encounter for screening mammogram for breast cancer - ICD9: V76.12, ICD10: Z12.31 - [facility] SCREENING F/u with hem/onc next month as scheduled Cori Vasquez APRN.[employer]PRENTICE Referring Provider: SELF [200] Allergies As of Date: 02/07/2018 Noted Allergy Reaction PENICILLINS 11/12/2010 2 - Rash 9 - Itching CODEINE 11/12/2010 9 - Itching MORPHINE 11/12/2010 16 - Unknown RITUXIMAB 11/12/2010 16 - Unknown Date Reviewed: 02/07/2018 Reviewed by: Cori Linares ([facility]) Paula Vasquez - Fully Assessed Reason for Visit: Hospital Follow Up [177] Cmt: 01/27 for chest pain, feeling better today Reason For Visit History Recorded Primary Visit Diagnosis:Hospital discharge follow-up [Z09] Other Visit Diagnoses:Chest pain, unspecified type [R07.9] Essential hypertension [I10] Gastroesophageal reflux disease, esophagitis presence not specified [K21.9] Tobacco use [Z72.0] Encounter for screening mammogram for breast cancer [Z12.31] Order(s):XR CHEST 2V FRONTAL/LAT [[id number]] Order #: [id number] FUTURE Hydrochlorothiazide 12.5 mg capsuleTake 1 capsule by mouth once daily.Disp: 30 capsuleRfl: 1 Omeprazole 40 mg capsuleTake 1 capsule by mouth as needed.Disp: 90 capsuleRfl: 1 [facility] SCREENING [[id number]] Order #: [id number] FUTURE Prescriptions as of 02/07/2018 Sig: OMEPRAZOLE 40 MG CAPSULE,FATEMEH* Take 1 capsule by mouth as ne* ALPRAZOLAM 1 MG TABLET Take 1 tablet by mouth three * Patient taking differently: Take 1 mg by mouth three time* BACLOFEN 10 MG TABLET Take 1 tablet by mouth three * Patient taking differently: Take 10 mg by mouth three jenni* METOPROLOL SUCCINATE ER 50 MG* Take 1 tablet by mouth twice * RAMIPRIL 5 MG CAPSULE Take 1 capsule by mouth four * GABAPENTIN 600 MG TABLET Take 1 tablet by mouth three * NAPROXEN 500 MG TABLET Take 1 tablet by mouth twice * ASPIRIN 325 MG TABLET Takes half tab daily HYDROCHLOROTHIAZIDE 12.5 MG C* Take 1 capsule by mouth once * Medication notes this encounter OMEPRAZOLE 40 MG CAPSULE,DELAYED RELEASE >> Zack Aguilar 02/07/2018 1:19 PM >> ZACK AGUILAR MonFeb 07, 2018 1:19 PM Received from: External Pharmacy Received Sig: TAKE 1 CAPSULE BY MOUTH ONCE DAILY Problem List As Of Date 02/07/2018 Noted Resolved Lymphoma [C85.90] INVALID FOR* Marginal zone lymphoma [C85.80] INVALID FOR* Cellulitis of face [L03.211] INVALID FOR* Anxiety [F41.9] Peripheral neuropathy (HCC) [G62.9] More... Chest pain [R07.9] INVALID FOR* Gastroesophageal reflux disease [K21.9] INVALID FOR* Essential hypertension [I10] INVALID FOR* Prescriptions ordered this encounter Disp Refills Start End HYDROCHLOROTHIAZIDE 12.5 MG CAPSULE 30 c* 1 02/07/2018 Route: ORAL Sig: Take 1 capsule by mouth once daily. OMEPRAZOLE 40 MG CAPSULE,DELAYED REL* 90 c* 1 02/07/2018 Route: ORAL Sig: Take 1 capsule by mouth as needed. Medications Discontinued During This Encounter esomeprazole (NEXIUM) 40 mg capsule 30 c* 0 01/27/2018 02/07/2018 Class: Print RX Route: ORAL Sig: Take 1 capsule by mouth once daily. Patient not taking: Reported on 02/07/2018 Disc: Reason for discontinue is not on file. Omeprazole 40 mg capsule 0 01/27/2018 02/07/2018 Class: Historical Med Route: ORAL Sig: Take 40 mg by mouth as needed. Disc: Reason for discontinue is not on file. Disposition: Return in about 4 weeks (around 03/07/2018) for bp check . Follow-up and Disposition History Recorded Encounter Status:Closed by CORI LOOMIS CNP on 02/07/18 PROGRESS Observed: 02/07/2018 Status: COMPLETED Source: [place] 1:19 PM [facility] REPOSITORY HNO ID: [id number] Author: Zack Aguilar Service: (none) Author Type: (none) Type: Progress Notes Filed: 02/07/2018 2:03 PM Note Text: MAMMOGRAM due on 03/01/2018 CASE MANAGEM Observed: 01/27/2018 Status: COMPLETED Source: [place] 11:43 AM [facility] CAMPUS REPOSITORY HNO ID: [id number] Author: Monica PrestonRn) ANANYA Aranda Service: Case Management Author Type: Registered Nurse Type: Care Mgt Progress Note Filed: 01/27/2018 11:49 AM Note Text: CARE MANAGEMENT DISCHARGE NOTE SERVICE DATE: 01/27/2018 SERVICE TIME: 11:43 AM LOS: 0 days Admission Date: 01/27/2018 DISCHARGE ARRANGEMENT (list agency and phone number) Home Provider: Radha Donald CAREGIVER ASSESSMENT: Caregiver is ready, willing and able to meet the patient's needs as recommended by the inter-professional team? Yes Patient's transition needs and plan for meeting these needs: Follow up with PCP after dc Does the patient have an acute stroke diagnosis, or has the patient had a stroke during this admission? No HANDOFF COMMUNICATION: Primary Care Physician: Nargis Donald Summary of care sent to: Nargis Donald MD PCP - General Family Practice [phone] [facility] [address] Breezy Lawrence DO Cardiology [phone] [address] TRANSPORTATION ARRANGEMENTS: Car - Family to transport ADDITIONAL CONTACT RESOURCES: Patient discharged prior to 24hr stay and before initial assessment could be completed SIGNATURE: Monica Aranda RN PATIENT NAME: Cristiane Santiago DATE: January 27, 2018 TIME: 11:43 AM PAGER/CONTACT #: [phone] NURSING PROG Observed: 01/27/2018 Status: COMPLETED Source: [place] 11:18 AM [facility] OTHER CAMPUS REPOSITORY O ID: [id number] Author: Fady (Rn) ANANYA Méndez Service: Nursing Author Type: Registered Nurse Type: Nursing Progress Note Filed: 01/27/2018 2:25 PM Note Text: Nursing Progress Note Patient Name: Cristiane Santiago Patient Location: [facility] [id number] Daily Note: 0700- Assumed care of Pt, pt with no current complaint of chest pain, Pt does complain of headache and chronic back pain. VS stable 0900- pt remains free of chest pain 1100- Discharge ordered Received pt aware 1415- Pt discharge paper work reviewed and signed Pt left unit in stable condition with no chest pain. This note was completed by: ANANYA Smith Observed: 01/27/2018 Status: COMPLETED Source: [place] 11:11 AM [facility] OTHER CAMPUS REPOSITORY O ID: [id number] Author: Beti Zepeda Service: General Internal Medicine Author Type: Physician Type: Discharge Summaries Filed: 01/27/2018 11:16 AM Note Text: DISCHARGE SUMMARY PATIENT NAME: Cristiane Santiago ADMISSION DATE: 01/27/2018 DISCHARGE DATE: 01/27/2018 ATTENDING PHYSICIAN: Scott Youssef REASON FOR HOSPITALIZATION: chest pain DIAGNOSIS: 1. Chest pain 2. Hx lymphoma 3. GERD 4. CAD 5. Essential HTN OPERATIONS DURING HOSPITALIZATION: None PROCEDURES DURING HOSPITALIZATION: No procedures performed HOSPITAL COURSE: Pt admitted with chest pain. Serial enzymes negative and hx not c/w cardiac origin. Pt was instructed though to check a stress test as an oupt. Nexium started for sx's of gerd. CXR suggested possible fluid but bnp normal and clinically pt didn't appear fluid overloaded. LABS AND PROCEDURES PENDING AT DISCHARGE: No pending results. CONSULTING TEAMS DURING HOSPITALIZATION: None PATIENT CONDITION AT DISCHARGE: Stable DISCHARGE DISPOSITION: Home/Self Care Discharge Physical Exam: VITAL SIGNS: BP 157/84 Pulse 71 Temp 36.6 ?C (97.9 ?F) (Oral) Resp 19 SpO2 93% GENERAL: Alert, no distress, cooperative SKIN: Skin color, texture, turgor normal. No rashes or lesions. HEAD/SINUSES: No significant findings EYES: PERRLA, EOMI LUNGS: Lungs clear to auscultation, Good diaphragmatic excursion CARDIAC: Normal S1 and S2; no rubs, murmurs, or gallops INFORMATION PROVIDED TO PATIENT: (To pull info documented from the DC Instruct Orderset Complete O/S First): check stress test DISCHARGE MEDICATION: Current Discharge Medication List START taking these medications oxyCODONE-acetaminophen (PERCOCET) 1 tablet Take 1 tablet by mouth one time only. Earliest Fill Date: 01/27/18 Qty: 12 tablet Refills: 0 Associated Diagnoses:Chest pain, unspecified type esomeprazole (NexIUM) 40 mg Take 40 mg by mouth once daily. Qty: 30 capsule Refills: 0 CONTINUE these medications which have NOT CHANGED ALPRAZolam (XANAX) 1 mg Take 1 mg by mouth three times daily as needed. Qty: 90 tablet Refills: 1 Associated Diagnoses:Anxiety baclofen (LIORESAL) 10 mg Take 10 mg by mouth three times daily as needed. Qty: 90 tablet Refills: 2 metoprolol succinate ER (TOPROL XL) 50 mg Take 50 mg by mouth twice daily. Qty: 180 tablet Refills: 1 ramipril (ALTACE) 5 mg Take 5 mg by mouth four times daily. Qty: 360 capsule Refills: 2 Associated Diagnoses:Essential hypertension gabapentin (NEURONTIN) 600 mg Take 600 mg by mouth three times daily. Qty: 270 tablet Refills: 2 aspirin 325 mg tablet Takes half tab daily naproxen (NAPROSYN) 500 mg Take 500 mg by mouth twice daily with meals. Qty: 40 tablet Refills: 0 STOP taking these medications nortriptyline (PAMELOR) 25 mg Comments: Reason for Stopping: FUTURE APPOINTMENTS: Follow Up with PCP: Nargis Donald MD TIME OF CARE (Use first blank if not applicable): TIME OF CARE: Discharge Management: I personally spent less than 30 minutes involved in the discharge management of this patient. SIGNATURE: Beti Zepeda MD PATIENT NAME: Cristiane Santiago DATE: January 27, 2018 TIME: 11:12 AM PAGER/CONTACT #: [phone] TROPONIN T Collected: 01/27/2018 Status: F Source: [place] 10:33 AM [facility]INIC OTHER [facility] REPOSITORY TYPE CODE TESTS RESULT OUT OF REFERENCE UNITS RANGE LAB TROPT 0.000-0.029 ng/mL Troponin T 0.015 Performed By: #### NEGRITO #### [facility] [address] [place] [address] NURSING PROG Observed: 01/27/2018 Status: COMPLETED Source: [place] 7:49 AM CLINIC OTHER CAMPUS REPOSITORY HNO ID: [id number] Author: Cassidy PrestonRn) ANANYA Cuellar Service: (none) Author Type: Registered Nurse Type: Nursing Progress Note Filed: 01/27/2018 7:50 AM Note Text: Nursing Progress Note Patient Name: Cristiane Santiago Patient Location: [facility] [id number] Daily Note: 0605 pt admitted from [place] ED in stable condition. LS clear. No cough or edema. Denies chest pain but c/o's headache. Denies nausea. 0700 Dr. Youssef at bedside. This note was completed by: Cassidy Cuellar RN TROPONIN T Collected: 01/27/2018 Status: F Source: [place] 7:23 AM [facility] OTHER [facility] REPOSITORY TYPE CODE TESTS RESULT OUT OF REFERENCE UNITS RANGE LAB TROPT 0.000-0.029 ng/mL Troponin T 0.018 Performed By: #### NEGRITO #### [facility] [address] [place] [address] HEMOGLOBIN A1C Collected: 01/27/2018 Status: F Source: [place] 7:23 AM [facility] OTHER [facility] REPOSITORY TYPE CODE TESTS RESULT OUT OF REFERENCE UNITS RANGE LAB HGBA1C 4.3-5.6 % High Hemoglobin A1c 6.0 LAB HBA0 mg/dL Est. Average Glucose 126 Result Comment: eAG: (Estimated average glucose) is a calculated value from HgbA1c and is associate sales representative of the average blood glucose level in the last 2-3 month period. Performed By: #### HBA1C #### [facility] [address] [address] HISTORY PHYSICAL Observed: 01/27/2018 Status: COMPLETED Source: [place] 7:03 AM [facility] OTHER [facility] REPOSITORY HNO ID: [id number] Author: Scott Youssef Service: Hospital Medicine Author Type: Physician Type: HANDP Filed: 01/27/2018 7:20 AM Note Text: HOSPITAL MEDICINE HISTORY AND PHYSICAL EXAM PATIENT NAME: Cristiane Santiago SERVICE DATE: 01/27/2018 SERVICE TIME: 7:03 AM Primary Care Physician: Nargis Donald MD NIGHT COVERAGE Page [phone] for any questions between 5.30p-7.30a ASSESSMENT AND PLAN Active Hospital Problems Diagnosis - Chest pain This is a 63 year old female with pmh of lymphoma, CAD with stent placed over 10 years ago, HTN, anxiety, peripheral neuropathy who presents with chest pain Atypical chest pain substernal chest pain with radiation down her left arm and back, relieved with nitro. Occurs at rest -EKG and trop in ER were unremarkable. -will cont to trend trops and on tele -encourage tobacco cessation -lipid panel and HbA1c pending -Asprin given, refuses statin -hx of stent in the RCA in 2004 -no recent stress test -cardio consulted HTN -will cont home avis and bb -bp elevated this am, will reval after getting her AM meds Tobacco abuse -encourage cessation. Anxiety -cont home benzo Peripheral neuropathy -secondary to chemo for her lymphoma -cont home gabapentin. Hx of lymphoma -outpt follow up -currently stable from his point of view Dispo: pending cardio recs. SUBJECTIVE CHIEF COMPLAINT: Chest pain HPI: This is a 63 year old female with pmh of lymphoma, CAD with stent placed over 10 years ago, HTN, anxiety, peripheral neuropathy who presents with chest pain which is sharp 10/10 substernal pain. It occurs at rest and was improved in the ER with nitroglycerin. She states that the pain goes down her left arm and goes to her back as well. The patient states that the pain occurs at rest and has been happening more frequently. She does adhere to her beta lisa therapy and Asprin but does not take her statin. She denies any dizziness or diaphoresis. She denies any fevers, chills, sob, chest pain, abd pain, nausea or vomiting or diarrhea. She has no new weakness or numbness. Her grandfather had an DE but she does not remember how old he was. In addition, she cont to smoke 1 pack per day and denies any personal history of DE or CVA. Her stent was placed in [facility] and her RCA was stented. PAST MEDICAL HISTORY: PAST MEDICAL HISTORY Diagnosis Date - Anxiety - CAD (coronary artery disease) - Cellulitis of face 08/24/2015 - HTN (hypertension) - Hyperlipidemia pt refuses meds due to myalgias - Marginal zone lymphoma (HCC) 05/10/[address] Dyer yearly - Muscle spasm toes curl/ spread apart, started after chemo caused neuropathy - Non Hodgkin's lymphoma (HCC) 2004 - Peripheral neuropathy due to chemo - Tachycardia PAST SURGICAL HISTORY: PAST SURGICAL HISTORY Procedure Laterality Date - BACK SURGERY HX - BONE MARROW ASP 2005 - CARDIAC CATH 2004 - FOOT BILATERAL OP SURGERY 2000 - HERNIA REPAIR HX X 2 - HYSTERECTOMY HX - PORTOCATH PLACEMENT 2005, 2010 - PTCA SNGL VSSL LD 2005 LAD stent - REMOVAL OF ACCESS PORT 05/01/2013 - REMOVAL SPLEEN, TOTAL 2005 pneumovax 2004 - REVISE MEDIAN N/CARPAL TUNNEL SURG 2006 Carpal tunnel decomp Lt - TOTAL ABDOM HYSTERECTOMY ? if pt has ovaries FAMILY HISTORY: FAMILY HISTORY Problem Relation Age of Onset - Cancer Father ? type - Diabetes Mother - Hypertension Mother - Breast Cancer Maternal Aunt and ovarian cancer - leukemia [OTHER] Maternal Aunt 2 cousins SOCIAL HISTORY: Social History Substance Use Topics - Smoking status: Former Smoker Quit date: 04/17/2007 - Smokeless tobacco: Never Used - Alcohol use No MEDICATIONS: Reviewed ALLERGIES: ALLERGIES Allergen Reactions - Penicillins Rash, Itching - Codeine Itching - Morphine Unknown - Rituximab Unknown REVIEW OF SYSTEM: PAIN ASSESSMENT: Negative for pain, history of chronic pain, or current treatment for a chronic pain condition. GENERAL: No weight loss, malaise or fevers. HEENT: Negative for frequent or significant headaches, No changes in hearing or vision, no nose bleeds or other nasal problems NECK: Negative for lumps, goiter, pain and significant neck swelling RESPIRATORY: Negative for cough, hemoptysis, wheezing or shortness of breath CARDIOVASCULAR: negative except for above. GI: No nausea, vomiting, or diarrhea : No history of dysuria, frequency or incontinence. MUSCULOSKELETAL: Negative for joint pain or swelling, back pain or muscle pain. SKIN: Negative for lesions, rash, and itching. PSYCH: Negative for sleep disturbance, mood disorder and recent psychosocial stressors. HEMATOLOGY/LYMPHOLOGY: Negative for prolonged bleeding, bruising easily or swollen nodes. ENDOCRINE: Negative for cold or heat intolerance, polyuria, polydipsia and goiter. NEURO: No history of headaches, syncope, paralysis, seizures or tremors OBJECTIVE PHYSICAL EXAM: BP 160/90 Pulse 75 Temp (Src) 97.9 (Oral) Resp 16 SpO2 95% GENERAL: alert, no distress, cooperative SKIN: Skin color, texture, turgor normal. No rashes or lesions. LUNGS: Lungs clear to auscultation. Good diaphragmatic excursion. CARDIAC: normal S1 and S2; no rubs, murmurs, or gallops ABDOMEN: Abdomen soft, non-tender. BS normal. No masses or organomegaly. EXTREMITIES: Extremities normal. No deformities, edema, clubbing or skin discoloration., No ulcers NEURO:Reflexes normal and symmetric. Sensation grossly intact., Cranial nerves II-XII intact PULSES: 2+ radial, 2+ carotid DATA: Diagnostic tests reviewed for today's visit: Most recent labs Most recent imaging Most recent EKG CBC: WBC 10.5 01/27/2018 Hemoglobin 15.7 01/27/2018 Hematocrit 45.5 01/27/2018 Platelet Count 284 01/27/2018 CMP: Sodium 139 01/27/2018 Potassium 3.4 01/27/2018 BUN 10 01/27/2018 Creatinine 0.55 01/27/2018 Glucose 122 01/27/2018 Chloride 104 01/27/2018 CO2 29 01/27/2018 VTE Prophylaxis: Early Ambulation Disposition: Home Plan of care discussed with: Patient, Family/Other: and RN SIGNATURE: Scott Youssef MD DATE: January 27, 2018 TIME: 7:03 AM ED NOTE Observed: 01/27/2018 Status: COMPLETED Source: [place] 5:26 AM [facility] REPOSITORY HNO ID: [id number] Author: Kassi PrestonRn) ANANYA Lozada Service: Emergency Medicine Author Type: Registered Nurse Type: ED Notes Filed: 01/27/2018 5:26 AM Note Text: [facility] here for transport. Report given. Care transferred ED NOTE Observed: 01/27/2018 Status: COMPLETED Source: [place] 4:31 AM [facility] REPOSITORY HNO ID: [id number] Author: Kassi Lincoln) ANANYA Lozada Service: Emergency Medicine Author Type: Registered Nurse Type: ED Notes Filed: 01/27/2018 4:34 AM Note Text: [facility] notified - spoke with Kolby WANG 30-45 ED NOTE Observed: 01/27/2018 Status: COMPLETED Source: [place] 4:31 AM [facility] REPOSITORY HNO ID: [id number] Author: Kassi PrestonRn) ANANYA Lozada Service: Emergency Medicine Author Type: Registered Nurse Type: ED Notes Filed: 01/27/2018 4:31 AM Note Text: Bed received at [address] ED NOTE Observed: 01/27/2018 Status: COMPLETED Source: [place] 4:06 AM [facility] REPOSITORY HNO ID: [id number] Author: Kassi PrestonRn) ANANYA Lozada Service: Emergency Medicine Author Type: Registered Nurse Type: ED Notes Filed: 01/27/2018 4:20 AM Note Text: Dr. Youssef accepts patient to [facility] ED NOTE Observed: 01/27/2018 Status: COMPLETED Source: [place] 3:35 AM [facility] REPOSITORY HNO ID: [id number] Author: Kassi PrestonRn) ANANYA Lozada Service: Emergency Medicine Author Type: Registered Nurse Type: ED Notes Filed: 01/27/2018 4:19 AM Note Text: MD on phone with Dr. Lin ED NOTE Observed: 01/27/2018 Status: COMPLETED Source: [place] 3:11 AM [facility] REPOSITORY HNO ID: [id number] Author: Kassi PrestonRn) ANANYA Lozada Service: Emergency Medicine Author Type: Registered Nurse Type: ED Notes Filed: 01/27/2018 4:12 AM Note Text: Spoke with Toyin from [facility] transfer line for transfer to [facility] CT HEAD W/O CONTRAST Observed: 01/27/2018 Status: F [facility]: [facility] 2:55 AM [facility] REPOSITORY Performed at [facility] APPROVED BY: DEMAR BELLO MD EXAMINATION: CT HEAD W/O CONTRAST HISTORY: Headache. Non-Hodgkin's neoplasm with chemotherapy. TECHNIQUE: Head CT without contrast. MQ: [id number] COMPARISONS: 09/03/2010. CT Dose-Length Product (DLP): [address] Dose Reduction Employed: Yes Radiation Shielding Employed: N/A RESULT: HEAD CT: Mild progression in senescent changes. Patchy white matter low attenuation is identified in mainly within the bifrontal region which is new from prior examination and most likely these are senescent changes, however, there is concern for white matter pathology or lymphomatous infiltration then MRI without and with contrast would be of value if clinically indicated. Age expected unre markable remaining sulci, gyri, ventricles, CSF spaces and brain. No acute infarct/hemorrhage, mass effect or collections. Normal bones and soft tissues. IMPRESSION: 1. Progression in patchy white matter low attenuation. 2. Most likely senescent changes. 3. If there is concern for acute disease as detailed above MRI may be of value. CHEST 1 VIEW Observed: 01/27/2018 Status: F Source: [facility] 2:55 AM [facility] REPOSITORY Performed at [facility] APPROVED BY: TRIPP DE LA PAZ DO EXAMINATION: CHEST RADIOGRAPH (SINGLE VIEW AP OR PA) Clinical History: Chest pain Comparison: None RESULT: Lines, tubes, and devices: None. Lungs and pleura: Haziness overlying the left lateral costophrenic angle, potentially layering pleural fluid. No pneumothorax. Diffuse interstitial opacities. No overt parenchymal consolidation is d emonstrated. Density/densities overlying the anterior aspect of the right fifth rib are indeterminate. Density overlying the medial right lung base is likely related to a vessel on end. Indistinctnes s along the right heart border is favored to be related to atelectasis. Mild peribronchial thickening. Cardiomediastinal silhouette: Cardiac silhouette appears upper normal in caliber. Other: No clear acute osseous abnormality. Probable vascular calcifications. Degenerative change and mild curvature of spine. IMPRESSION: 1. Diffuse interstitial opacities. Possible trace left pleural effusion. Edema is favored. Infection is considered less likely. No definite parenchymal consolidation is demonstrated. 2. Mild peribronchial thickening. 3. Densities at the right lung base may be related to the costochondral junction. Underlying pulmonary nodule is not excluded. Follow- up PA and lateral chest radiographs are recommended. ED PROV NOTE Observed: 01/27/2018 Status: COMPLETED Source: [place] 2:29 AM [facility] REPOSITORY O ID: [id number] Author: Francisca Garcia DO Service: Emergency Medicine Author Type: Physician Type: ED Provider Notes Filed: 01/27/2018 4:22 AM Note Text: ED Provider Note Patient Name: Cristiane Santiago SERVICE DATE: 01/27/18 History Patient presents with: Chest Pain HPI Comments: patient complains of substernal chest pain going into her back between her shoulder blades and onto her left arm. She states that it's sharp in nature. She states it's been off and on for a couple days, more consistent since yesterday. She is taking antacids without any relief. She states that she told her girlfriend I'm either having heartburn or having a heart attack. Patient states that she has been having headaches for the past couple weeks well. He notes it's mainly in the back of her head. No fall or injury. Spouse states she was started on any medication couple months ago (pamelor/nortriptyline). He thinks may be related to that. She was started to help her sleep due to her post hepatic neuralgia. Patient is a 63 year old female presenting with chest pain. History provided by: Patient and spouse official court interpreter used: No Chest Pain Pain location: Substernal area Pain quality: sharp Pain radiates to: Mid back Pain severity: Moderate Onset quality: Gradual Duration: 2 days Timing: Intermittent Progression: Worsening Chronicity: New Context: at rest Relieved by: Nothing Worsened by: Nothing Ineffective treatments: Antacids and rest Associated symptoms: back pain, heartburn (not sure if she is having a heart attack or having heart burn she states), nausea and shortness of breath Associated symptoms: no abdominal pain, no altered mental status, no claudication, no cough, no diaphoresis, no dizziness, no dysphagia, no fatigue, no fever, no headache, no lower extremity edema, no near-syncope, no numbness, no orthopnea, no palpitations, no PND, no syncope, no vomiting and no weakness Risk factors: coronary artery disease, high cholesterol and hypertension PAST MEDICAL HISTORY Diagnosis Date - Anxiety - CAD (coronary artery disease) - Cellulitis of face 08/24/2015 - HTN (hypertension) - Hyperlipidemia pt refuses meds due to myalgias - Marginal zone lymphoma (HCC) 05/10/[address] 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 if pt has ovaries FAMILY HISTORY Problem Relation Age of Onset - Cancer Father ? type - Diabetes Mother - Hypertension Mother - Breast Cancer Maternal Aunt and ovarian cancer - leukemia [OTHER] Maternal Aunt 2 cousins Social History Social History Main Topics - Smoking status: Former Smoker Quit date: 04/17/2007 - Smokeless tobacco: Never Used - Alcohol use No - Drug use: No - Sexual activity: Not Asked ALLERGIES Allergen Reactions - Penicillins Rash, Itching - Codeine Itching - Morphine Unknown - Rituximab Unknown Review of Systems Constitutional: Negative for chills, diaphoresis, fatigue and fever. HENT: Negative for sore throat and trouble swallowing. Eyes: Negative for photophobia and visual disturbance. Respiratory: Positive for shortness of breath. Negative for cough, wheezing and stridor. Cardiovascular: Positive for chest pain. Negative for palpitations, orthopnea, claudication, leg swelling, syncope, PND and near-syncope. Gastrointestinal: Positive for heartburn (not sure if she is having a heart attack or having heart burn she states) and nausea. Negative for abdominal pain and vomiting. Musculoskeletal: Positive for back pain and neck pain (right side, ongoing, that is where shingles was in august). Negative for neck stiffness. Skin: Positive for rash (some residual shingles scabs right neck). Negative for wound. Neurological: Negative for dizziness, syncope, weakness, numbness and headaches. Psychiatric/Behavioral: Negative for agitation and confusion. Physical Exam BP 137/81 Pulse 67 Temp 98.4 Resp 20 Ht 5' 3 (1.60m) Wt 143 lb (64.9kg) SpO2 95% BMI 25.34 kg/(m2). Physical Exam Constitutional: She is oriented to person, place, and time. She appears well-developed and well-nourished. No distress. HENT: Head: Normocephalic and atraumatic. Mouth/Throat: Oropharynx is clear and moist. Eyes: Conjunctivae and EOM are normal. Pupils are equal, round, and reactive to light. No scleral icterus. Neck: Normal range of motion. No JVD present. Cardiovascular: Normal rate, regular rhythm and intact distal pulses. Pulmonary/Chest: Effort normal and breath sounds normal. No stridor. Abdominal: Soft. Bowel sounds are normal. She exhibits no distension. There is no tenderness. There is no rebound and no guarding. Neurological: She is alert and oriented to person, place, and time. No cranial nerve deficit. Skin: Skin is warm and dry. Lesion (couple scabs right neck / residual shingles lesions) noted. She is not diaphoretic. Psychiatric: She has a normal mood and affect. Her behavior is normal. Diagnostic Testing ED Labs Ordered and Reviewed CBC + AUTO DIFF (AK,AV,EU,FV,HL,AMBER,MM,SP) - Abnormal; Notable for the following: Result Value Ref Range MCH 31.1 (*) 27.0 - 31.0 pg Lymphocyte # 4.10 (*) 1.50 - 3.65 thou/cmm Eosinophil # 0.95 (*) 0.00 - 0.41 thou/cmm Basophil # 0.21 (*) 0.00 - 0.08 thou/cmm All other components within normal limits COMPREHENSIVE METABOLIC PANEL (AK,AV,EU,FV,HL,AMBER,MM,SP) - Abnormal; Notable for the following: Potassium 3.4 (*) 3.5 - 5.1 mEq/L Glucose 122 (*) 70 - 99 mg/dL Alkaline Phosphatase 144 (*) 46 - 116 U/L All other components within normal limits TROPONIN I (AK) LIPASE BLOOD (AK,AV,EU,FV,HL,AMBER,MM,SP) MDRD GFR CBC + AUTO DIFF (EU,FV,HL,AMBER,MM,SP) PROBNP N-TERMINAL (AK,AV,EU,FV,HL,AMBER,MM,SP) Procedures Medical Decision Making / ED Course ED Course Labs, imaging ordered. I discussed results with the patient. Chest pain improving with nitro. She has a known history of CAD with stent that was placed in 2004. She has not seen a geophysical party chief in 10 years. HEART: 5 Patient is agreeable to admission and is requesting [facility]. I spoke with Dr. Lin, ICU physician at [facility] (no tele beds, needs boarded in the ICU) and discussed case. He will only accept if I talk to cardiology at [facility] and make sure she doesn't need acute intervention. EKG will be faxed to [facility] for geophysical party chief to review, as well. Time: 345 am I spoke with Dr. Glass , cardiology at [facility], he reviewed the EKG and agree there are no acute findings. There is no acute intervention that is needed at this time. I spoke again with Dr. Lin to discuss this. He was unaware the patient was only coming to the ICU as a telemetry border and does not require ICU at this time and states the hospitalist is still the one who would be taking care of this patient and the one that needs to be contacted for admission. Time: 420 am I spoke with Dr. Youssef, hospitalist at [facility], who is willing to admit. Encounter Diagnosis ICD-10-CM 1. Chest pain, unspecified type R07.9 2. Acute nonintractable headache, unspecified headache type R51 Plan The Patient was TRANSFERRED to: [facility] Condition at time of disposition: stable SIGNATURE: Francisca Garcia DO EKG Interpretation: RHYTHM: Normal sinus rhythm at 78 beats per minute AXIS: Normal axis INTERVALS: Normal IL interval QRS COMPLEX: Normal ST SEGMENT: Normal ST-T segments QT INTERVAL: Normal COMPARED WITH PRIOR: None available Francisca Garcia DO 01/27/18 0422 HEMOGRAM/MANUAL DIFF Collected: 01/27/2018 Status: F Source: [place] 2:19 AM [facility] REPOSITORY TYPE CODE TESTS RESULT OUT OF REFERENCE UNITS RANGE LAB LWBC(LOINC 4.8-10.8 thou/cmm ) WBC 10.5 LAB LRBC(LOINC 4.20-5.40 mil/cmm ) RBC 5.05 LAB LHGB(LOINC 12.0-16.0 g/dL ) Hgb 15.7 LAB LHCT(LOINC 37.0-47.0 % ) Hct 45.5 LAB LMCV(LOINC 81.0-99.0 fl ) MCV 90.1 LAB LMCH(LOINC 27.0-31.0 pg ) MCH High 31.1 LAB LMCHC(LOIN 32.0-36.0 % C) MCHC 34.5 LAB LRDW(LOINC 11.5-15.9 % ) RDW 14.4 LAB LPLT(LOINC 150-400 thou/cmm ) Platelet 284 LAB LMPV(LOINC 7.1-10.5 fl ) MPV 10.5 LAB LDTYP(LOIN C) Diff Type Manual Diff LAB LSEGT(LOIN % C) Seg Neutrophil 41.0 LAB LLYMP(LOIN % C) Lymphocyte 23.0 LAB LMNO(LOINC % ) Monocyte 9.0 LAB ROSENDO(LOINC % ) Eosinophil 9.0 LAB LBASO(LOIN % C) Basophil 2.0 LAB LATYP(LOIN % C) Atypical Lymph 16.0 LAB LSEGN(LOIN 3.00-5.67 thou/cmm C) Abs. Neut 4.29 LAB LLYMN(LOIN 1.50-3.65 thou/cmm C) Abs. High Lymph 4.10 LAB LMONN(LOIN 0.20-1.00 thou/cmm C) Abs. [place] 0.95 LAB LEOSN(LOIN 0.00-0.41 thou/cmm C) Abs. High Eosin 0.95 LAB LBASN(LOIN 0.00-0.08 thou/cmm C) Abs. High Baso 0.21 LAB LPLES(LOIN C) Platelet Estimate Normal LAB LWBCM(LOIN C) WBC Morphology see below Result Comment: Smudge cells present LAB LTARG(LOINC) Target cells Few Performed By: #### LMCBD #### [place] [address] COMPREHENSIVE PANEL Collected: 01/27/2018 Status: F Source: [facility] 2:19 AM [facility] REPOSITORY TYPE CODE TESTS RESULT OUT OF REFERENCE UNITS RANGE LAB BIODIESEL PRODUCTION ASSOCIATE(LOINC) 136-145 mEq/L Sodium Blood 139 LAB LK(LOINC) 3.5-5.1 mEq/L Low Potassium Blood 3.4 LAB LCL(LOINC) 98-107 mEq/L Chloride Blood 104 LAB LCO2(LOINC 21-32 mEq/L ) CO2 Blood 29 LAB LGLU(LOINC 70-99 mg/dL ) Glucose High Blood 122 LAB LBUN(LOINC 7-25 mg/dL ) BUN Blood 10 LAB LCREA(LOIN 0.51-0.95 mg/dL C) Creatinine Blood 0.55 LAB LCA(LOINC) 8.5-10.1 mg/dL Calcium Blood 9.4 LAB LALB(LOINC 3.4-5.0 g/dL ) Albumin Blood 3.8 LAB LTP(LOINC) 6.4-8.2 g/dL Total Protein 7.1 LAB LAST(LOINC 15-37 U/L ) AST-SGOT Blood 22 LAB LALT(LOINC 14-63 U/L ) ALT-SGPT Blood 24 LAB LALKP(LOIN 46-116 U/L C) Alk High Phosphatase 144 LAB LBILT(LOIN 0.2-1.0 mg/dL C) Total Bilirubin 0.3 LAB LANGP(LOIN 8-20 C) Anion Gap 10 LAB LBNCR(LOIN 10-20 C) BUN/Creatinine 18 Ratio Performed By: #### LP14 #### [facility] [address] [place] [address] LIPASE BLOOD Collected: 01/27/2018 Status: F Source: [facility] 2:19 AM [facility] REPOSITORY TYPE CODE TESTS RESULT OUT OF REFERENCE UNITS RANGE LAB LLIP(LOINC) 73-393 U/L Lipase Blood 187 Performed By: #### LLIP #### [facility] [address] [place] [address] MDRD EGFR Collected: 01/27/2018 Status: F Source: [facility] 2:19 AM [facility] REPOSITORY TYPE CODE TESTS RESULT OUT OF RANGE REFERENCE UNITS LAB LGFRF(LOINC >60mL/min/1.73m ) 2 eGFR >60 Result Comment: If the patient is , multiply the result by 1.210. Performed By: #### LGFR #### [place] [address] TROPONIN I Collected: 01/27/2018 Status: F Source: [facility] 2:19 AM [facility] REPOSITORY TYPE CODE TESTS RESULT OUT OF REFERENCE UNITS RANGE LAB LTRP(LOINC) <=0.07 ng/mL Troponin I <0.03 Performed By: #### LTRP #### [place] [address] N-TERMINAL PRO-BNP Collected: 01/27/2018 Status: F Source: [facility] 2:19 AM [facility] REPOSITORY TYPE CODE TESTS RESULT OUT OF RANGE REFERENCE UNITS LAB LPBNP(LOINC pg/ml ) 581.0 N-terminal Pro-BNP Result Comment: Acute CHF Rule-in <50 yrs old >= 450 pg/ml >50 yrs old >= 900 pg/ml Abnormal Pro-BNP All patients >=300 pg/ml Performed By: #### LPBNP #### [place] [address] ED NOTE Observed: 01/27/2018 Status: COMPLETED Source: [place] 2:13 AM [facility] REPOSITORY HNO ID: [id number] Author: Cristiane (Rn) ANANYA Ramirez Service: Emergency Medicine Author Type: Registered Nurse Type: ED Notes Filed: 01/27/2018 2:14 AM Note Text: Chest pain that radiates to left arm, pain for quite a while, worse since yesterday ED NOTE Observed: 01/27/2018 Status: COMPLETED Source: [place] 2:12 AM [facility] REPOSITORY HNO ID: [id number] Author: Cristiane (Rn) ANANYA Ramirez Service: Emergency Medicine Author Type: Registered Nurse Type: ED Notes Filed: 01/27/2018 2:15 AM Note Text: EKG in progress, Dr El henry to examine CNPN Observed: 12/01/2017 Status: COMPLETED Source: [place] 12:00 AM [facility] REPOSITORY Telephone (FAMDNA) CRISTIANE SANTIAGO ([id number]) 1955 F Date Time Provider Department 12/01/17 NARGIS DONALD FAMDNA During your visit today, we recorded the following information about you: Gege Saumya Psr 12/01/2017 11:50 AM Signed Patient calling about her Medications. She is upset about the way her medication refills are done. She would like a phone call back today so that she can go over them with the [employer]. Thank you Juana Rojas MA 12/01/2017 2:08 PM Signed Spoke to pt and she is very upset that her medication was declined for a refill. Her Baclofen was declined because there was still one refill left. I tried to explain to pt that she still has a refill and that's why it was declined at this time. Once she has picked up the last refill then she can put in for another refill. Her OARRS was not showing that she had picked up a previous script for her xanax and she states that we are accusing her of trying to get her meds too soon. I called the pharmacy and verified that pt did picker tender previous script. I called in xanax refill and explained to pt that she has a refill for her baclofen. Pt still very upset and doesn't understand why its so difficult to get medications each month. Cristiane Lau [facility] [place] [facility] [place] 12/01/2017 2:50 PM Signed Patient called today. She would like to know if pcp would like her to stay on nortriptyline (PAMELOR) 25 mg capsule. She is unsure if this was permanent. She requested to speak with Juana, please advise and call. Juana Rojas MA 12/01/2017 3:46 PM Addendum Spoke with pt and she states that she feels like the nortriptyline is helpful and would like refills if possible. Please advise, thank you. Rx pended. Juana Rojas MA 12/01/2017 3:46 PM Signed Addended by: JUANA ROJAS MA on: 12/01/2017 03:46 PM Modules accepted: Orders Refugio Cortez MD 12/01/2017 4:08 PM Signed Prescription was sent in Please inform patient Thanks Refugio Cortez MD 12/01/2017 4:08 PM Signed Addended by: REFUGIO CORTEZ MD on: 12/01/2017 04:08 PM Modules accepted: Orders Allergies As of Date: 12/01/2017 Noted Allergy Reaction PENICILLINS 11/12/2010 2 - Rash 9 - Itching CODEINE 11/12/2010 9 - Itching MORPHINE 11/12/2010 16 - Unknown RITUXIMAB 11/12/2010 16 - Unknown Date Reviewed: 10/23/2017 Reviewed by: Ino Rick)(Hist) Alexandr - Fully Assessed Reason for Visit: patient upset on Medications [Other] Order(s):nortriptyline (PAMELOR) 25 mg capsuleTake 1 capsule by mouth daily at bedtime.Disp: 30 capsuleRfl: 3 Prescriptions as of 12/01/2017 Sig: ALPRAZOLAM 1 MG TABLET Take 1 tablet by mouth three * NORTRIPTYLINE 25 MG CAPSULE Take 1 capsule by mouth daily* BACLOFEN 10 MG TABLET TAKE 1 TABLET BY MOUTH THREE * METOPROLOL SUCCINATE ER 50 MG* Take 1 tablet by mouth twice * RAMIPRIL 5 MG CAPSULE Take 1 capsule by mouth four * GABAPENTIN 600 MG TABLET Take 1 tablet by mouth three * NAPROXEN 500 MG TABLET Take 1 tablet by mouth twice * ASPIRIN 325 MG TABLET Takes half tab daily Problem List As Of Date 12/01/2017 Noted Resolved Lymphoma [C85.90] INVALID FOR* Marginal zone lymphoma [C85.80] INVALID FOR* Cellulitis of face [L03.211] INVALID FOR* Anxiety [F41.9] Peripheral neuropathy (HCC) [G62.9] More... Prescriptions ordered this encounter Disp Refills Start End NORTRIPTYLINE 25 MG CAPSULE 30 c* 3 12/01/2017 Route: ORAL Sig: Take 1 capsule by mouth daily at bedtime. Medications Discontinued During This Encounter nortriptyline (PAMELOR) 25 mg capsule 30 c* 1 10/23/2017 12/01/2017 Route: ORAL Sig: Take 1 capsule by mouth daily at bedtime. Disc: Reason for discontinue is not on file. Encounter Status:Closed by JUANA ROJAS MA on 12/01/17 OBSOLETE Observed: 11/03/2017 Status: COMPLETED Source: [place] 12:00 AM [facility] REPOSITORY Refill ([facility]AM[facility]) CRISTIANE SANTIAGO ([id number]) 1955 F Date Time Provider Department 11/03/17 CORI LOOMIS ([facility] During your visit today, we recorded the following information about you: Allergies As of Date: 11/03/2017 Noted Allergy Reaction PENICILLINS 11/12/2010 2 - Rash 9 - Itching CODEINE 11/12/2010 9 - Itching MORPHINE 11/12/2010 16 - Unknown RITUXIMAB 11/12/2010 16 - Unknown Date Reviewed: 10/23/2017 Reviewed by: Ino Rick)(HistNeelam Strange - Fully Assessed Reason for Visit: Refill Request [94] Order(s):baclofen (LIORESAL) 10 mg tabletTAKE 1 TABLET BY MOUTH THREE TIMES DAILY NEEDED FOR MUSCLE SPASMSDisp: 90 tabletRfl: 1 Prescriptions as of 11/03/2017 Sig: BACLOFEN 10 MG TABLET TAKE 1 TABLET BY MOUTH THREE * NORTRIPTYLINE 25 MG CAPSULE Take 1 capsule by mouth daily* METOPROLOL SUCCINATE ER 50 MG* Take 1 tablet by mouth twice * RAMIPRIL 5 MG CAPSULE Take 1 capsule by mouth four * GABAPENTIN 600 MG TABLET Take 1 tablet by mouth three * ALPRAZOLAM 1 MG TABLET TAKE 1 TABLET BY MOUTH THREE * NAPROXEN 500 MG TABLET Take 1 tablet by mouth twice * ASPIRIN 325 MG TABLET Takes half tab daily Problem List As Of Date 11/03/2017 Noted Resolved Lymphoma [C85.90] INVALID FOR* Marginal zone lymphoma [C85.80] INVALID FOR* Cellulitis of face [L03.211] INVALID FOR* Anxiety [F41.9] Peripheral neuropathy (HCC) [G62.9] More... Prescriptions ordered this encounter Disp Refills Start End BACLOFEN 10 MG TABLET 90 t* 1 11/03/2017 Sig: TAKE 1 TABLET BY MOUTH THREE TIMES DAILY NEEDED FOR MUSCLE SPASMS Medications Discontinued During This Encounter baclofen (LIORESAL) 10 mg tablet 90 t* 3 07/31/2017 11/03/2017 Cmt: pt does not have any refills/new rx on file please send refill. Sig: TAKE 1 TABLET BY MOUTH THREE TIMES DAILY NEEDED FOR MUSCLE SPASMS Disc: Reason for discontinue is not on file. Encounter Status:Closed by CORI LOOMIS CNP on 11/03/17 PROGRESS Observed: 10/23/2017 Status: COMPLETED Source: [place] 2:00 PM [facility] REPOSITORY [facility] ID: [id number] Author: Nargis Donald Service: (none) Author Type: Physician Type: Progress Notes Filed: 10/23/2017 2:43 PM Note Text: Cristiane Santiago is a 62 year old female who presents today with concern or complaint of Patient presents with: Shingles Follow up Sinus Problem Refill Request . 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 All prescriptions have been APPROPRIATELY filled. No suspicious activity was identified.- 10/23/2017 by Nargis Donald MD ROS - see HPI PAST MEDICAL HISTORY Diagnosis Date - Anxiety - CAD (coronary artery disease) - Cellulitis of face 08/24/2015 - HTN (hypertension) - Hyperlipidemia pt refuses meds due to myalgias - Marginal zone lymphoma (HCC) 05/10/[address] 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 if pt has ovaries MEDICATIONS: Current Outpatient Prescriptions on File Prior to Visit: ALPRAZolam (XANAX) 1 mg tablet TAKE 1 TABLET BY MOUTH THREE TIMES DAILY NEEDED FOR ANXIETY naproxen (NAPROSYN) 500 mg tablet Take 1 tablet by mouth twice daily with meals. HYDROcodone-acetaminophen (NORCO) 5-325 mg per tablet Take 1 tablet by mouth every 6 hours as needed. baclofen (LIORESAL) 10 mg tablet TAKE 1 TABLET BY MOUTH THREE TIMES DAILY NEEDED FOR MUSCLE SPASMS ramipril (ALTACE) 5 mg capsule Take 1 capsule by mouth four times daily. metoprolol succinate ER (TOPROL XL) 50 mg 24 hr tablet Take 1 tablet by mouth twice daily. gabapentin (NEURONTIN) 600 mg tablet Take 1 tablet by mouth three times daily. aspirin 325 mg tablet Takes half tab daily gabapentin (NEURONTIN) 300 mg capsule Take 1 capsule by mouth daily at bedtime. In addition to 600 mg q hs No current facility-administered medications on file prior to visit. ALLERGIES: Penicillins; Codeine; Morphine; Rituximab Social History Substance Use Topics - Smoking status: Former Smoker Quit date: 04/17/2007 - Smokeless tobacco: Never Used - Alcohol use No PHYSICAL EXAMINATION: BP 131/80 Pulse 62 Temp 37.1 ?C (98.7 ?F) (Oral) Resp 16 Ht 160 cm (5' 3) Wt 60.9 kg (134 lb 4.8 oz) SpO2 97% BMI 23.79 kg/m2 General appearance: alert, cooperative, pleasant, in no acute distress Head: Normaocephalic Eyes: conjunctiva/corneas normal, PERRL, EOMI Ears: Inspection of External ears normal R TM - clear with good landmarks, L TM - clear with good landmarks Nose: purulent rhinorrhea, mucosa erythematous and swollen, sinus tenderness over maxillary sinuses left Oropharynx: moist without lesions, + erythema / fistula left upper Neck: supple and no adenopathy skin lesion behind right ear and side of right neck - abrasion, / excoriation, no vesicles Heart: regular rate and rhythm, without murmur Lungs: clear to auscultation, without rales or wheeze, good air exchange ASSESSMENT/PLAN: 1. Acute maxillary sinusitis, recurrence not specified - ICD9: 461.0, ICD10: J01.00 (primary diagnosis) - Will begin treatment with Doxycline - Supportive care with plenty of fluids, rest, and analgesia prn. - Follow up in one week if symptoms persist or worsen. 2. Essential hypertension - ICD9: 401.9, ICD10: I10 - good control - Continue current medication(s) - Recommended regular aerobic exercise. - Recommend home blood pressure monitoring, to bring results in on next visit - Recheck in 3-6 months, sooner should new symptoms or problems arise. - Goal of BP <140/90 - RAMIPRIL 5 MG CAPSULE 3. Postherpetic neuralgia - ICD9: 053.19, ICD10: B02.29 advised to cont w/ neurontin 600 tid will add pamelor as prescribed and see if that helps w/ this and neuropahty f/u 1-2 months prn or if doing well routine f/u in 3 months 4. Acute non-recurrent frontal sinusitis - ICD9: 461.1, ICD10: J01.10 - DOXYCYCLINE MONOHYDRATE 100 MG CAPSULE Nargis Donald MD CNOV Observed: 10/23/2017 Status: COMPLETED Source: [place] 1:40 PM [facility] REPOSITORY Office Visit (FAMDNA) JERELLaureanoCRISTIANE David ([id number]) 1955 F Date Time Provider Department 10/23/17 1:40 PM NARGIS DONALD During your visit today, we recorded the following information about you: Temperature Pulse Respiration Blood pressure 98.7 degrees 62/minute 16/minute 131/80 Weight Height 60.9 kg 1.6 m Ino Strange MA 10/23/2017 1:40 PM Signed Patient presents with: Shingles Follow up Sinus Problem Refill Request Ino Strange MA 10/23/2017 2:43 PM Signed There are no preventive care reminders to display for this patient. Ino Strange MA 10/23/2017 1:39 PM Signed [facility] - LAB TEST INFORMATION HOURS: 7 am to 6 pm Monday ? Monday, 7 am -12 pm on Monday. The lab is located in [facility] on the first floor. There is a registration window at the lab, available 7 am to 3 pm Monday ? Monday. If registration is unavailable at the lab, you may register at the patient registration office near the front lobby of the hospital. ROUTINE ORDERS 60 days after they are entered. If you arrive for your lab testing after the orders have , you may be required to wait in the lab while they are reinstated. FUTURE ORDERS are lab tests to be completed on or after an ?expected? future date. These orders 60 days after the expected date. STANDING ORDERS are recurring orders with an expiration date. The interval will indicate how often the test should be completed. FASTING means nothing to eat or drink (except water) 10-12 hours before your blood is drawn. CT / MRI / IVP If you have lab tests ordered for one of these radiology exams, please complete the blood work at least one day prior to the scheduled exam. PRESCRIPTION REFILL REQUESTS Request prescription refills through your [employer] account or contact your Pharmacy. Nargis Donald MD 10/23/2017 2:43 PM Signed Cristiane Santiago is a 62 year old female who presents today with concern or complaint of Patient presents with: Shingles Follow up Sinus Problem Refill Request . 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 All prescriptions have been APPROPRIATELY filled. No suspicious activity was identified.- 10/23/2017 by Nargis Donald MD ROS - see HPI PAST MEDICAL HISTORY Diagnosis Date - Anxiety - CAD (coronary artery disease) - Cellulitis of face 08/24/2015 - HTN (hypertension) - Hyperlipidemia pt refuses meds due to myalgias - Marginal zone lymphoma (HCC) 05/10/[address] 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 if pt has ovaries MEDICATIONS: Current Outpatient Prescriptions on File Prior to Visit: ALPRAZolam (XANAX) 1 mg tablet TAKE 1 TABLET BY MOUTH THREE TIMES DAILY NEEDED FOR ANXIETY naproxen (NAPROSYN) 500 mg tablet Take 1 tablet by mouth twice daily with meals. HYDROcodone-acetaminophen (NORCO) 5-325 mg per tablet Take 1 tablet by mouth every 6 hours as needed. baclofen (LIORESAL) 10 mg tablet TAKE 1 TABLET BY MOUTH THREE TIMES DAILY NEEDED FOR MUSCLE SPASMS ramipril (ALTACE) 5 mg capsule Take 1 capsule by mouth four times daily. metoprolol succinate ER (TOPROL XL) 50 mg 24 hr tablet Take 1 tablet by mouth twice daily. gabapentin (NEURONTIN) 600 mg tablet Take 1 tablet by mouth three times daily. aspirin 325 mg tablet Takes half tab daily gabapentin (NEURONTIN) 300 mg capsule Take 1 capsule by mouth daily at bedtime. In addition to 600 mg q hs No current facility-administered medications on file prior to visit. ALLERGIES: Penicillins; Codeine; Morphine; Rituximab Social History Substance Use Topics - Smoking status: Former Smoker Quit date: 04/17/2007 - Smokeless tobacco: Never Used - Alcohol use No PHYSICAL EXAMINATION: BP 131/80 Pulse 62 Temp 37.1 ?C (98.7 ?F) (Oral) Resp 16 Ht 160 cm (5' 3ANDquot;) Wt 60.9 kg (134 lb 4.8 oz) SpO2 97% BMI 23.79 kg/m2 General appearance: alert, cooperative, pleasant, in no acute distress Head: Normaocephalic Eyes: conjunctiva/corneas normal, PERRL, EOMI Ears: Inspection of External ears normal R TM - clear with good landmarks, L TM - clear with good landmarks Nose: purulent rhinorrhea, mucosa erythematous and swollen, sinus tenderness over maxillary sinuses left Oropharynx: moist without lesions, + erythema / fistula left upper Neck: supple and no adenopathy skin lesion behind right ear and side of right neck - abrasion, / excoriation, no vesicles Heart: regular rate and rhythm, without murmur Lungs: clear to auscultation, without rales or wheeze, good air exchange ASSESSMENT/PLAN: 1. Acute maxillary sinusitis, recurrence not specified - ICD9: 461.0, ICD10: J01.00 (primary diagnosis) - Will begin treatment with Doxycline - Supportive care with plenty of fluids, rest, and analgesia prn. - Follow up in one week if symptoms persist or worsen. 2. Essential hypertension - ICD9: 401.9, ICD10: I10 - good control - Continue current medication(s) - Recommended regular aerobic exercise. - Recommend home blood pressure monitoring, to bring results in on next visit - Recheck in 3-6 months, sooner should new symptoms or problems arise. - Goal of BP ANDlt;140/90 - RAMIPRIL 5 MG CAPSULE 3. Postherpetic neuralgia - ICD9: 053.19, ICD10: B02.29 advised to cont w/ neurontin 600 tid will add pamelor as prescribed and see if that helps w/ this and neuropahty f/u 1-2 months prn or if doing well routine f/u in 3 months 4. Acute non-recurrent frontal sinusitis - ICD9: 461.1, ICD10: J01.10 - DOXYCYCLINE MONOHYDRATE 100 MG CAPSULE Nargis Donald MD Referring Provider: NARGIS DONALD [[id number]] Allergies As of Date: 10/23/2017 Noted Allergy Reaction PENICILLINS 11/12/2010 2 - Rash 9 - Itching CODEINE 11/12/2010 9 - Itching MORPHINE 11/12/2010 16 - Unknown RITUXIMAB 11/12/2010 16 - Unknown Date Reviewed: 10/23/2017 Reviewed by: Ino Rick)(Hist) Alexandr - Fully Assessed Reason for Visit: Shingles Follow up [Other] Sinus Problem [99] Refill Request [94] Reason For Visit History Recorded Primary Visit Diagnosis:Acute maxillary sinusitis, recurrence not specified [J01.00] Other Visit Diagnoses:Essential hypertension [I10] Postherpetic neuralgia [B02.29] Acute non-recurrent frontal sinusitis [J01.10] Order(s):nortriptyline (PAMELOR) 25 mg capsuleTake 1 capsule by mouth daily at bedtime.Disp: 30 capsuleRfl: 1 doxycycline monohydrate (MONODOX) 100 mg capsuleTake 1 capsule by mouth twice daily for 10 days.Disp: 20 capsuleRfl: 0 metoprolol succinate ER (TOPROL XL) 50 mg 24 hr tabletTake 1 tablet by mouth twice daily.Disp: 180 tabletRfl: 1 ramipril (ALTACE) 5 mg capsuleTake 1 capsule by mouth four times daily.Disp: 360 capsuleRfl: 2 gabapentin (NEURONTIN) 600 mg tabletTake 1 tablet by mouth three times daily.Disp: 270 tabletRfl: 2 Prescriptions as of 10/23/2017 Sig: METOPROLOL SUCCINATE ER 50 MG* Take 1 tablet by mouth twice * RAMIPRIL 5 MG CAPSULE Take 1 capsule by mouth four * ALPRAZOLAM 1 MG TABLET TAKE 1 TABLET BY MOUTH THREE * NAPROXEN 500 MG TABLET Take 1 tablet by mouth twice * BACLOFEN 10 MG TABLET TAKE 1 TABLET BY MOUTH THREE * ASPIRIN 325 MG TABLET Takes half tab daily NORTRIPTYLINE 25 MG CAPSULE Take 1 capsule by mouth daily* DOXYCYCLINE MONOHYDRATE 100 M* Take 1 capsule by mouth twice* GABAPENTIN 600 MG TABLET Take 1 tablet by mouth three * Medication notes this encounter GABAPENTIN 300 MG CAPSULE >> Ino Strange MA 10/23/2017 1:40 PM >> INO STRANGE MA Oct 23, 2017 1:40 PM D/C Problem List As Of Date 10/23/2017 Noted Resolved Lymphoma [C85.90] INVALID FOR* Marginal zone lymphoma [C85.80] INVALID FOR* Cellulitis of face [L03.211] INVALID FOR* Anxiety [F41.9] Peripheral neuropathy (HCC) [G62.9] More... Other instructions from your clinician: [facility] OFFICE BUILDING - LAB TEST INFORMATION HOURS: 7 am to 6 pm Monday ? Monday, 7 am -12 pm on Monday. The lab is located in [facility] on the first floor. There is a registration window at the lab, available 7 am to 3 pm Monday ? Monday. If registration is unavailable at the lab, you may register at the patient registration office near the front lobby of the hospital. ROUTINE ORDERS 60 days after they are entered. If you arrive for your lab testing after the orders have , you may be required to wait in the lab while they are reinstated. FUTURE ORDERS are lab tests to be completed on or after an ?expected? future date. These orders 60 days after the expected date. STANDING ORDERS are recurring orders with an expiration date. The interval will indicate how often the test should be completed. FASTING means nothing to eat or drink (except water) 10- 12 hours before your blood is drawn. CT / MRI / IVP If you have lab tests ordered for one of these radiology exams, please complete the blood work at least one day prior to the scheduled exam. PRESCRIPTION REFILL REQUESTS Request prescription refills through your [facility] account or contact your Pharmacy. Visit Notes: >> Ino Rick)(Hist) Alexandr Mon Oct 23, 2017 1:36 PM Status: Signed Patient presents with: Shingles Follow up Sinus Problem Refill Request Prescriptions ordered this encounter Disp Refills Start End NORTRIPTYLINE 25 MG CAPSULE 30 c* 1 10/23/2017 Route: ORAL Sig: Take 1 capsule by mouth daily at bedtime. DOXYCYCLINE MONOHYDRATE 100 MG CAPSU* 20 c* 0 10/23/2017 11/02/2017 Route: ORAL Sig: Take 1 capsule by mouth twice daily for 10 days. METOPROLOL SUCCINATE ER 50 MG TABLET* 180 * 1 10/23/2017 Class: Print RX Route: ORAL Sig: Take 1 tablet by mouth twice daily. RAMIPRIL 5 MG CAPSULE 360 * 2 10/23/2017 Class: Print RX Route: ORAL Sig: Take 1 capsule by mouth four times daily. GABAPENTIN 600 MG TABLET 270 * 2 10/23/2017 10/23/2018 Class: Print RX Route: ORAL Sig: Take 1 tablet by mouth three times daily. Medications Discontinued During This Encounter HYDROcodone-acetaminophen (NORCO) 5-* 16 t* 0 08/29/2017 10/23/2017 Class: Print RX Route: ORAL Sig: Take 1 tablet by mouth every 6 hours as needed. Disc: Reason for discontinue is not on file. gabapentin (NEURONTIN) 300 mg capsule 30 c* 0 09/06/2017 10/23/2017 Route: ORAL Sig: Take 1 capsule by mouth daily at bedtime. In addition to 600 mg q hs Disc: Reason for discontinue is not on file. gabapentin (NEURONTIN) 600 mg tablet 270 * 3 05/22/2017 10/23/2017 Class: [facility] Route: ORAL Sig: Take 1 tablet by mouth three times daily. Disc: Reason for discontinue is not on file. doxycycline monohydrate (MONODOX) 10* 14 c* 0 01/31/2017 10/23/2017 Route: ORAL Sig: Take 1 capsule by mouth twice daily for 7 days. Disc: Reason for discontinue is not on file. metoprolol succinate ER (TOPROL XL) * 180 * 1 06/15/2017 10/23/2017 Route: ORAL Sig: Take 1 tablet by mouth twice daily. Disc: Reason for discontinue is not on file. ramipril (ALTACE) 5 mg capsule 360 * 2 06/15/2017 10/23/2017 Route: ORAL Sig: Take 1 capsule by mouth four times daily. Disc: Reason for discontinue is not on file. Encounter Status:Closed by NARGIS DONALD MD on 10/23/17 PROGRESS Observed: 10/23/2017 Status: COMPLETED Source: [place] 1:36 PM [facility] REPOSITORY HNO ID: [id number] Author: Ino Rick)(Hist) Alexandr Service: (none) Author Type: [employer] Type: Progress Notes Filed: 10/23/2017 2:43 PM Note Text: There are no preventive care reminders to display for this patient. ALLERGIES ALLERGIES DATE TYPE / NAME / CODE REACTION SEVERITY SOURCE CODE Drug Penicillins/[id number](R Unknown Unknown [place] 8 Allergy/4 XNORM) [facility]/[id number](RXNO Unknown Unknown [place] 8 Allergy/4 RM) Community 37826648( [facility]) Drug codeine/[id number](RXNOR Unknown Unknown [place] Allergy/4 M) Community 41176393( [facility] CT) DRUG HYDROCHLOROTHIAZIDE INTOLERANCE [place] 8 INGREDI/4 Clinic Other 19510718( [place] SNOMED Repository CT) Drug PENICILLINS RASH [place] 1 Class/419 [facility] CODEINE ITCHING [place] 1 INGREDI/4 Clinic Other 19510718( [place] SNOMED Repository CT) DRUG MORPHINE UNKNOWN [place] 1 INGREDI/4 Clinic Other 19510718( [place] SNOMED Repository CT) DRUG RITUXIMAB UNKNOWN [place] 1 INGREDI/4 Clinic Other 19510718( [place] SNOMED Repository CT) ENCOUNTERS ENCOUNTERS ADMIT/DISCHARGE ACCOUNT ADMITTING ENCOUNTER LOCATION SOURCE NUMBER CLASS 09/28/2018/09/28/20 [id number] Ambulatory [address] Repository 09/28/2018/09/28/20 [id number] Ambulatory [address] Other [place] Repository 09/17/2018/09/17/20 [id number] Ambulatory [address] Repository 09/14/2018/09/14/20 [id number] Ambulatory [facility] [place] [facility] Repository 09/12/2018 [id number] Ambulatory [facility] ing:MRI Repository 08/21/2018 [id number] Ambulatory [facility] ing:HPRAD Repository 08/21/2018/08/21/20 [id number] Ambulatory B[facility]Building:[facility].Critical access hospital Repository 04/23/2018/04/24/20 [id number] Ambulatory [address] Repository 03/07/2018/03/08/20 [id number] Ambulatory [address] Repository 02/28/2018 [id number] Ambulatory [facility] Other [place] Repository 02/27/2018/03/02/20 [id number] Ambulatory [address] Repository 02/07/2018/02/09/20 [id number] Ambulatory [address] Repository 01/27/2018/01/28/20 [id number] LASHONDA, Ambulatory [address] Repository 10/23/2017/10/23/19 [id number] Ambulatory [address] Repository PAYERS PAYERS ENCOUNTER GUARANTOR PAYER SUBSCRIBER SOURCE 09/14/2018 CRISTIANE D Primary CRISTIANE D [place] [id number] Insurance:[facility] [id number] Number: Repository [id number]: [phone] [id number] [phone] () Date:[id number] [address]KC: 09/14/2018 Secondary NOT GIVENUNK Dre Insurance:SELF PAY [facility] Number: Effective Repository Date:2018-09-14 09/12/2018 CRISTIANE D Primary CRISTIANE D [place] [id number] Insurance:MEDICAL ROHMDOB: [facility] [id number] Number: Repository [id number]: [phone] [id number] [phone] (HP) Date:0795-57-25LA [address] [address]QU: 09/12/2018 Secondary NOT GIVENUNK Dre Insurance:SELF PAY [facility] Number: Effective Repository Date:2018-09-07 08/21/2018 CRISTIANE D Primary CRISTIANE D [place] [id number] Insurance:MEDICAL ROHMDOB: [facility] [id number] Number: Repository [id number]: [phone] [id number] [phone] (HP) Date:7373-51-40RS [address] [address]QB: 08/21/2018 Secondary NOT GIVENUNK [place] Insurance:SELF PAY [facility] Number: Effective Repository Date:2018-08-21 08/21/2018 CRISTIANE D Primary CRISTIANE D Dre [id number] Insurance:MEDICAL ROHMDOB: [facility] [id number] Number: Repository [id number]: [phone]) [id number] [phone] (HP) Date:6444-47-45YA [address] [address]JM: 08/21/2018 Secondary NOT GIVENUNK [place] Insurance:SELF PAY [facility] Number: Effective Repository Date:2018-08-21
== END ==
PROVIDERS: Referring Provider Physician Assistant; Visit Provider Physician Assistant
DX: M67.911 Unspecified disorder of synovium and tendon, right shoulder (principal); S46.209A Unspecified injury of muscle, fascia and tendon of other parts of biceps, unspecified arm, initial encounter
CPT/HCPCS: 73221